=== PATIENT | female | born 1935 | race Caucasian/White ===

== ENCOUNTER 2020-01-03 10:14 | Outpatient (CLI) | payer MEDICARE, BC, SELFPAY ==
[2020-01-03 10:45] LABS: Basophils Percent Auto 0.4 % (0.2-1.2); Eosinophils Absolute Auto 0.3 K/mm3 (0-0.3); Eosinophils Percent Auto 3.9 % (0-4.4); Hematocrit 38.1 % (37.0-47.0); Hemoglobin 12.5 g/dL (12.0-15.0); Immature Granulocyte Absolute 0.02 K/mm3 (0.00-0.031); Immature Granulocyte Percent A 0.3 % (0-0.5); Lymphocytes Absolute Auto 2.23 K/mm3 (0.9-3.2); Lymphocytes Percent Auto 32.5 % (18.3-44.2); Mean Corpuscular HGB Conc 32.8 g/dl (32-36); Mean Corpuscular Hemoglobin 32.4 pg (26-34); Mean Corpuscular Volume 98.7 fl (80-100); Mean Platelet Volume 10.1 fl (7.4-10.4); Monocytes Absolute Auto 0.7 K/mm3 (0.1-0.6); Monocytes Percent Auto 10.3 % (2.6-8.5); Neutrophils Absolute Auto 3.6 K/mm3 (1.3-6.7); Neutrophils Percent Auto 52.6 % (45.5-73.1); Platelet Count Result 203 k/mm3 (150-375); Red Blood Count 3.86 M/mm3 (4.2-5.4); Red Cell Distribution Width 11.4 % (11.5-14.5); White Blood Count 6.9 K/mm3 (4.5-10.0)
[2020-01-03 11:01] LABS: Anion Gap 4 mmol/L (8-16); Blood Urea Nitrogen 14 mg/dL (7-17); Calcium 8.9 mg/dL (8.4-10.2); Carbon Dioxide 29 mmol/L (22-30); Chloride 104 mmol/L (98-107); Cholesterol 125 mg/dL (0-200); Estimated Glomerular Filt Rate > 60; Glucose 91 mg/dL (65-105); HDL Direct 52 mg/dL; Potassium 4.2 mmol/L (3.4-5.0); Sodium 137 mmol/L (137-145); Triglycerides 110 mg/dL (<150)
[2020-01-03 11:12] LABS: LDL Cholesterol Direct 51 mg/dL
[2020-01-03 11:32] LABS: Thyroid Stimulating Hormone 0.032 uIU/mL (0.465-4.680)
[2020-01-03 11:44] LABS: Free T4 Free Thyroxine 1.33 ng/mL (0.78-2.19)
== END 2020-01-03 10:15 | disposition home or self-care (01) ==
PROVIDERS: PCP Internal Medicine; Visit Provider Internal Medicine
DX: E03.9 Hypothyroidism, unspecified (principal); E78.5 Hyperlipidemia, unspecified; I10 Essential (primary) hypertension; Z79.899 Other long term (current) drug therapy
CPT/HCPCS: 36415; 80048; 80061; 84439; 84443; 85025

== ENCOUNTER 2020-05-07 10:33 | Outpatient (CLI) | payer MEDICARE, BC, SELFPAY ==
[2020-05-07 11:14] LABS: Anion Gap 2 mmol/L (8-16); Blood Urea Nitrogen 11 mg/dL (7-17); Calcium 8.9 mg/dL (8.4-10.2); Carbon Dioxide 32 mmol/L (22-30); Chloride 105 mmol/L (98-107); Cholesterol 168 mg/dL (0-200); Estimated Glomerular Filt Rate > 60; Glucose 95 mg/dL (65-105); HDL Direct 45 mg/dL; Potassium 4.1 mmol/L (3.4-5.0); Sodium 139 mmol/L (137-145); Triglycerides 123 mg/dL (<150)
[2020-05-07 11:19] LABS: Hemoglobin A1C 5.6 % (<5.7)
[2020-05-07 11:25] LABS: LDL Cholesterol Direct 94 mg/dL
[2020-05-07 11:53] LABS: Add Urine Microscopic? YES; Appearance Urine Clear (Clear); Bilirubin Urine Negative (Negative); Blood Urine Negative (Negative); Color Urine Yellow (Yellow); Glucose Urine UA Negative (Negative); Ketones Urine Negative (Negative); Leukocyte Esterase Ur Negative LEU/UL (NEGATIVE); Mucus Urine Few /lpf; Nitrate Urine Negative (Negative); Protein Urine Negative (Negative); RBC Urine 0-2 /hpf (0-2); Specific Grav Ur 1.016 (1.001-1.035); Urobilinogen Urine Negative mg/dL (<2.0); WBC Urine 0-3 /hpf (0-3)
== END 2020-05-07 10:34 | disposition home or self-care (01) ==
LOC: ANHLAB 10:36
PROVIDERS: PCP Internal Medicine; Visit Provider Internal Medicine
DX: R79.89 Other specified abnormal findings of blood chemistry (principal); E03.9 Hypothyroidism, unspecified; I10 Essential (primary) hypertension; Z79.899 Other long term (current) drug therapy; E78.2 Mixed hyperlipidemia
CPT/HCPCS: 36415; 80048; 80061; 81001; 83036; 83090; 84439; 84443

== ENCOUNTER 2020-07-16 11:06 | Outpatient (CLI) | payer MEDICARE, BC, SELFPAY ==
[2020-07-16 11:59] LABS: Cholesterol 133 mg/dL (0-200); HDL Direct 70 mg/dL; Triglycerides 81 mg/dL (<150)
[2020-07-16 12:09] LABS: LDL Cholesterol Direct 44 mg/dL
== END 2020-07-16 11:07 | disposition home or self-care (01) ==
PROVIDERS: PCP Internal Medicine; Visit Provider Internal Medicine
DX: E78.2 Mixed hyperlipidemia (principal)
CPT/HCPCS: 36415; 80061

== ENCOUNTER 2020-09-07 12:05 | Outpatient (CLI) | payer MEDICARE, BC, SELFPAY ==
[2020-09-07 12:34] LABS: Anion Gap 2 mmol/L (8-16); Blood Urea Nitrogen 14 mg/dL (7-17); Calcium 9.5 mg/dL (8.4-10.2); Carbon Dioxide 32 mmol/L (22-30); Chloride 104 mmol/L (98-107); Cholesterol 127 mg/dL (0-200); Estimated Glomerular Filt Rate > 60; Glucose 103 mg/dL (65-105); HDL Direct 70 mg/dL; Potassium 4.4 mmol/L (3.4-5.0); Sodium 138 mmol/L (137-145); Triglycerides 107 mg/dL (<150)
[2020-09-07 12:45] LABS: LDL Cholesterol Direct 42 mg/dL
[2020-09-07 13:02] LABS: Thyroid Stimulating Hormone 0.361 uIU/mL (0.465-4.680)
[2020-09-07 13:46] LABS: Folic Acid > 20.0 ng/mL (2.76->20)
[2020-09-07 13:52] LABS: Free T4 Free Thyroxine 1.16 ng/mL (0.78-2.19)
[2020-09-12 07:43] LABS: Vitamin D 1,25 (OH)2 Total 35 pg/mL (18-72); Vitamin D2 1,25 (OH)2 <8 pg/mL; Vitamin D3 1,25 (OH)2 35 pg/mL
== END 2020-09-07 12:06 | disposition home or self-care (01) ==
PROVIDERS: PCP Internal Medicine; Visit Provider Internal Medicine
DX: E78.2 Mixed hyperlipidemia (principal); E03.9 Hypothyroidism, unspecified; I10 Essential (primary) hypertension; R79.89 Other specified abnormal findings of blood chemistry; E55.9 Vitamin D deficiency, unspecified
CPT/HCPCS: 36415; 80048; 80061; 82607; 82652; 82746; 84439; 84443

== ENCOUNTER 2020-09-24 14:38 | Day surgery (SDC) | payer MEDICARE, BC, SELFPAY ==
--- NOTE | ~2020-09-24 | XR_ITS ---
EXAMINATION: XR chest 2V EXAM DATE: 09/24/2020 16:23 INDICATION: Difficulty swallowing. TECHNIQUE: Frontal and lateral projections of the chest obtained and reviewed. Comparison is made to prior examination from 07/03/2018. FINDINGS: The lungs are clear. There are no pleural effusions. The cardiomediastinal silhouette is within normal limits. There is no pneumothorax suspected. Mild upper lumbar levoscoliosis. Old righ t rib fractures. IMPRESSION: No acute cardiopulmonary findings. Reviewed, dictated and finalized at location A.
[2020-09-24 14:43] VITALS: BP 130/53; PULSE 57; RESP 17; TEMP 36.6; O2SAT 99
--- NOTE | 2020-09-24 16:04 | ED.GENADULT ---
HPI - General Adult General Chief complaint: Unspecified Stated complaint: difficulty swallowing Time Seen by Provider: 09/24/20 15:50 Source: patient Mode of arrival: ambulatory Limitations: no limitations History of Present Illness HPI narrative: This is a 84 year old female that presents to the ER for difficulty swallowing. Reports last night she was trying to eat chicken finger and had to vomit a couple of times because they would not go down. Reports she tried to eat breakfast today and once again threw up. She is unable to keep down any liquids or solids. Reports some discomfort in her upper abdomen. Denies chest pain or shortness of breath. Related Data Home Medications Medication Instructions Recorded Confirmed ascorbic acid (vitamin C) 500 mg mg PO 05/23/19 05/15/20 capsule calcium carbonate 600 mg calcium 600 mg PO DAILY 05/23/19 05/15/20 (1,500 mg) tablet cholecalciferol (vitamin D3) 10 400 unit PO DAILY 05/23/19 05/15/20 mcg (400 unit) capsule mecobalamin (vitamin B12) 1,000 1,000 mcg SUBLINGUAL DAILY 05/23/19 05/15/20 mcg disintegrating tablet,sublingual multivitamin 1 tablet PO DAILY 05/23/19 05/15/20 aspirin 81 mg tablet,delayed 81 mg PO DAILY 05/15/20 05/15/20 release Allergies Allergy/AdvReac Type Severity Reaction Status Date / Time No Known Allergies Allergy Verified 09/24/20 15:38 Review of Systems Review of Systems: Narrative: CONSTITUTIONAL: Denies fever CARDIOVASCULAR: Denies chest pain RESPIRATORY: Denies dyspnea. 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 HEAD: Normocephalic, atraumatic. EYES: EOMI. ENT: Mucous membranes moist. Oropharynx without tonsillar hypertrophy exudate or other lesions. NECK: Supple. No adenopathy or masses. CHEST: Clear to auscultation. No respiratory distress. No wheezes rales or rhonchi HEART: Regular rate and rhythm. No murmur heard. Normal peripheral pulses. ABDOMEN: Soft, nontender, nondistended, normal active bowel sounds. EXTREMITIES: Normal range of motion. No edema. SKIN: Warm, dry, no rash. NEURO: No focal deficits. Alert and oriented x3. PSYCH: Normal mood and affect Course Consultations Consultation #1: Spoke with Dr. Ching about patient and workup who will take patient to the GI lab for EGD Date: 09/24/20 Time: 16:27 Vital Signs Vital signs: Vital Signs Temperature 97.8 F 09/24/20 14:43 Pulse Rate 57 L 09/24/20 14:43 Respiratory Rate 17 09/24/20 14:43 Blood Pressure 130/53 L 09/24/20 14:43 Pulse Oximetry 99 09/24/20 14:43 Temperature 97.8 F 09/24/20 17:10 Pulse Rate 63 09/24/20 17:46 Respiratory Rate 22 H 09/24/20 17:46 Blood Pressure 139/52 L 09/24/20 17:46 Pulse Oximetry 100 09/24/20 17:46 Medical Decision Making MDM Narrative Medical decision making narrative: Patient presents to the emergency department for dysphagia. Reports she try to eat some chicken tenders last night and has not been able to keep down any liquids or solid
[2020-09-24 16:35] LABS: Basophils Percent Auto 0.3 % (0.2-1.2); Eosinophils Absolute Auto 0.1 K/mm3 (0-0.3); Hematocrit 39.5 % (37.0-47.0); Immature Granulocyte Absolute 0.03 K/mm3 (0.00-0.031); Immature Granulocyte Percent A 0.3 % (0-0.5); Lymphocytes Absolute Auto 1.68 K/mm3 (0.9-3.2); Mean Corpuscular HGB Conc 32.9 g/dl (32-36); Mean Corpuscular Hemoglobin 32.6 pg (26-34); Mean Platelet Volume 10.1 fl (7.4-10.4); Monocytes Absolute Auto 0.7 K/mm3 (0.1-0.6); Monocytes Percent Auto 8.4 % (2.6-8.5); Neutrophils Absolute Auto 6.3 K/mm3 (1.3-6.7); Platelet Count Result 192 k/mm3 (150-375); Red Blood Count 3.99 M/mm3 (4.2-5.4); Red Cell Distribution Width 11.3 % (11.5-14.5); White Blood Count 8.8 K/mm3 (4.5-10.0)
[2020-09-24 16:42] LABS: Lipase 88 U/L (23-300)
[2020-09-24 16:44] LABS: Partial Thromboplastin Time 26.2 SECONDS (22.3-36.8); Prothrombin Time 13.5 Seconds (11.1-14.7)
[2020-09-24 16:48] LABS: Alanine Aminotransferase 19 U/L (4-35); Albumin Level 4.2 g/dL (3.5-5.1); Alkaline Phosphatase 81 U/L (38-126); Anion Gap 6 mmol/L (8-16); Aspartate Amino Transferase 34 U/L (14-36); Bilirubin,Total 0.6 mg/dL (0.2-1.3); Blood Urea Nitrogen 13 mg/dL (7-17); Calcium 9.5 mg/dL (8.4-10.2); Carbon Dioxide 29 mmol/L (22-30); Chloride 104 mmol/L (98-107); Estimated Glomerular Filt Rate > 60; Glucose 95 mg/dL (65-105); Potassium 3.8 mmol/L (3.4-5.0); Sodium 139 mmol/L (137-145)
--- NOTE | 2020-09-24 16:53 | WPDANESEPPF ---
Anes - Initial Pre Proc Eval Procedure: Operation Date: 09/24/20 16:45 Proposed Procedures p Esophagogastroduodenoscopy - John Ruiz DO Date/Time: 09/24/20 16:53 Surgeon: John Ching MD Pre Op Diagnosis: difficulty swallowing Patient Data Age: 84 Gender: F Height: Weight: 63 kg Last Vital Signs Temp 36.6 C 09/24/20 14:43 Pulse 57 L 09/24/20 14:43 Resp 17 09/24/20 14:43 BP 130/53 L 09/24/20 14:43 Pulse Ox 99 09/24/20 14:43 Allergies Allergy/AdvReac Type Severity Reaction Status Date / Time No Known Allergies Allergy Verified 09/24/20 15:38 Home Medications Medication Instructions Recorded Confirmed Type ascorbic acid (vitamin C) 500 mg mg PO 05/23/19 05/15/20 History capsule calcium carbonate 600 mg calcium 600 mg PO DAILY 05/23/19 05/15/20 History (1,500 mg) tablet cholecalciferol (vitamin D3) 10 400 unit PO DAILY 05/23/19 05/15/20 History mcg (400 unit) capsule mecobalamin (vitamin B12) 1,000 1,000 mcg SUBLINGUAL DAILY 05/23/19 05/15/20 History mcg disintegrating tablet,sublingual multivitamin 1 tablet PO DAILY 05/23/19 05/15/20 History folic acid 1 mg tablet 1 mg PO DAILY #90 tablet 01/02/20 05/15/20 Rx aspirin 81 mg tablet,delayed 81 mg PO DAILY 05/15/20 05/15/20 History release atorvastatin 20 mg tablet 20 mg PO DAILY #90 tablet 05/15/20 05/15/20 Rx candesartan 32 mg tablet 32 mg PO DAILY #90 tablet 05/15/20 05/15/20 Rx famotidine 40 mg tablet 40 mg PO DAILY #90 tablet 05/15/20 05/15/20 Rx levothyroxine 125 mcg capsule 125 mcg PO DAILY #30 cap 05/15/20 05/15/20 Rx metoprolol succinate 25 mg 25 mg PO DAILY #90 tablet 05/15/20 05/15/20 Rx tablet,extended release 24 hr niacin 1,000 mg tablet,extended 1,000 mg PO DAILY #90 tablet 05/15/20 05/15/20 Rx release paroxetine HCl 20 mg tablet 20 mg PO DAILY #90 tablet 05/15/20 05/15/20 Rx Laboratory Tests 09/24/20 09/24/20 09/24/20 16:28 16:28 16:28 WBC 8.8 K/mm3 K/mm3 (4.5-10.0) RBC 3.99 M/mm3 L M/mm3 (4.2-5.4) Hgb 13.0 g/dL g/dL (12.0-15.0) Hct 39.5 % % (37.0-47.0) MCV 99.0 fl fl (80-100) MCH 32.6 pg pg (26-34) MCHC 32.9 g/dl g/dl (32-36) RDW 11.3 % L % (11.5-14.5) Plt Count 192 k/mm3 k/mm3 (150-375) MPV 10.1 fl fl (7.4-10.4) Immature Gran % (Auto) 0.3 % % (0-0.5) Neut % (Auto) 71.0 % % (45.5-73.1) Lymph % (Auto) 19.0 % % (18.3-44.2) [place] % (Auto) 8.4 % % (2.6-8.5) Eos % (Auto) 1.0 % % (0-4.4) Baso % (Auto) 0.3 % % (0.2-1.2) Lymph # (Auto) 1.68 K/mm3 K/mm3 (0.9-3.2) [place] # (Auto) 0.7 K/mm3 H K/mm3 (0.1-0.6) Eos # (Auto) 0.1 K/mm3 K/mm3 (0-0.3) Baso # (Auto) 0.0 K/mm3 K/mm3 (0.0-0.1) Abs Immat Gran (auto) 0.03 K/mm3 K/mm3 (0.00-0.031) Absolute Neuts (auto) 6.3 K/mm3 K/mm3 (1.3-6.7) Absolute Nucleated RBC 0.0 K/mm3 K/mm3 (0.0-0.012) Nucleated RBC % 0.0 % % (0.0-0.2) PT INR APTT Sodium 139 mmol/L mmol/L (137-145) Potassium 3.8 mmol/L mmol/L (3.4-5.0) Chloride 104 mmol/L mmol/L (98-107) Carbon Dioxide 29 mmol/L mmol/L (22-30) Anion Gap 6 mmol/L L mmol/L (8-16) BUN 13 mg/dL mg/dL (7-17) Creatinine 0.70 mg/dL mg/dL (0.7-1.0) Estim Creat Clear Calc Not Reportable Estimated GFR > 60 (59 - ) Glucose 95 mg/dL mg/dL (65-105) Calcium 9.5 mg/dL mg/dL (8.4-10.2) Total Bilirubin 0.6 mg/dL mg/dL (0.2-1.3) AST 34 U/L U/L (14-36) ALT 19 U/L U/L (4-35) Alkaline Phosphatase 81 U/L U/L (38-126) Total Protein 7.0 g/dL g/dL (6.3-8.2) Albumin 4.2 g/dL g/dL (3.5-5.1) Lipase 88 U/L U/L (23
--- NOTE | 2020-09-24 17:04 | PC.NURSE ---
To GI lab per maraí.
[2020-09-24 17:10] VITALS: BP 138/62; PULSE 75; RESP 20; TEMP 36.6; O2SAT 100
[2020-09-24] MEDS: LACTATED RINGERS 1,000 ML 150 ML IV CONT (17:13)
--- NOTE | 2020-09-24 17:25 | WPDGICN ---
Assessment and Plan Assessment and plan (1) Dysphagia: Qualifiers: Dysphagia type: unspecified Qualified Code(s): R13.10 - Dysphagia, unspecified Code(s): R13.10 - Dysphagia, unspecified Status: Acute (2) GERD (gastroesophageal reflux disease): Qualifiers: Esophagitis presence: esophagitis presence not specified Qualified Code(s): K21.9 - Gastro-esophageal reflux disease without esophagitis Code(s): K21.9 - Gastro-esophageal reflux disease without esophagitis Status: Acute Assessment and Plan: Patient with a long history of GE reflux. Known to have esophageal stricturing on this basis. Likely would benefit from PPI therapy long-term rather than H2 blockers. Further recommendations will be given after endoscopy. (3) Food impaction of esophagus: Code(s): T18.128A - Food in esophagus causing other injury, initial encounter Status: Acute Assessment and Plan: Patient presents with food impaction since the last 24 hours. Unable to give a good history. Known to have esophageal stricture ring on the basis of GE reflux disease. Plan is for urgent EGD to disimpact the food bolus. Further recommendations will be given after endoscopy. GI Consult Note Consult date/time: 09/24/20 17:25 HPI: Jonna Velazco is a 84 year old female Seen in evaluation at the request of the emergency room. Patient was eating chicken last evening was abruptly unable to eat or swallow any additional intake. She continues to have difficulty swallowing saliva this morning. For this reason she presented to the emergency room. She denies abdominal pain. She appears to have very poor memory period 2019 EGD was performed esophageal stricture ring was identified dilated period that time placed on Prilosec 20 mg p.o. daily. In the interval. Two years she no longer takes this medication she has however taking famotidine on daily basis. Patient is unable to give a history of heartburn. But denies any weight loss. Family history noncontributory. 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 Family History Family History Father Family history of heart disease in male family member before age 55 Social History Social History Smoking status: Never smoker Alcohol intake: current Gender identity (if verbalized by the patient): Female Meds Home Medications and Allergies Home Medications Medication Instructions Recorded Confirmed Type ascorbic acid (vitamin C) 500 mg mg PO 05/23/19 05/15/20 History capsule calcium carbonate 600 mg calcium 600 mg PO DAILY 05/23/19 05/15/20 History (1,500 mg) tablet cholecalciferol (vitamin D3) 10 400 unit PO DAILY 05/23/19 05/15/20 History mcg (400 unit) capsule mecobalamin (vitamin B12) 1,000 1,000 mcg SUBLINGUAL DAILY 05/23/19 05/15/20 History mcg disintegrating tablet,sublingual multivitamin 1 tablet PO DAILY 05/23/19 05/15/20 History folic acid 1 mg tablet 1 mg PO DAILY #90 tablet 01/02/20 05/15/20 Rx aspirin 81 mg tablet,delayed 81 mg PO DAILY 05/15/20 05/15/20 History release atorvastatin 20 mg tablet 20 mg PO DAILY #90 tablet 05/15/20 05/15/20 Rx candesartan 32 mg tablet 32 mg PO DAILY #90 tablet 05/15/20 05/15/20 Rx famotidine 40 mg tablet 40 mg PO DAILY #90 tablet 05/15/20 05/15/20 Rx levothyro
[2020-09-24 17:26] VITALS: BP 119/47; PULSE 66; RESP 27; O2SAT 100
[2020-09-24 17:36] VITALS: BP 121/45; PULSE 60; RESP 25; O2SAT 100
[2020-09-24 17:46] VITALS: BP 139/52; PULSE 63; RESP 22; O2SAT 100
== END 2020-09-24 17:58 | disposition home or self-care (01) ==
LOC: ANHED 16:04 → ANHENDO 16:43
PROVIDERS: Physician Assistant; Emergency Provider Emergency Medicine; PCP Internal Medicine; Visit Provider Internal Medicine Gastroenterology
PROC: 0DJ08ZZ Inspection of Upper Intestinal Tract, Via Natural or Artificial Opening Endoscopic (ICD-10-PCS; CPT 43235; principal; 2020-09-24 16:45)
DX: T18.128A Food in esophagus causing other injury, initial encounter (principal); K22.2 Esophageal obstruction; K21.00 Gastro-esophageal reflux disease with esophagitis, without bleeding; I10 Essential (primary) hypertension; E78.5 Hyperlipidemia, unspecified; E03.9 Hypothyroidism, unspecified; Z79.899 Other long term (current) drug therapy; R09.89 Other specified symptoms and signs involving the circulatory and respiratory systems; F32.9 Major depressive disorder, single episode, unspecified; Z86.73 Personal history of transient ischemic attack (TIA), and cerebral infarction without residual deficits; Z79.82 Long term (current) use of aspirin
CPT/HCPCS: 43247; 36415; 71046; 80053; 83690; 85025; 85610; 85730; 99285; J2704; J7120

== ENCOUNTER → 2020-10-20 01:05 | Outpatient (CLI) | payer MEDICARE, BC, SELFPAY ==
[2020-10-20 17:56] LABS: SARS-CoV-2 RNA PCR Negative
== END ==
PROVIDERS: PCP Internal Medicine; Visit Provider Internal Medicine Gastroenterology
DX: Z01.812 Encounter for preprocedural laboratory examination (principal); Z20.822 Contact with and (suspected) exposure to COVID-19
CPT/HCPCS: C9803; U0003; U0005

== ENCOUNTER 2020-10-23 01:56 | Day surgery (SDC) | payer MEDICARE, BC, SELFPAY ==
[2020-10-11 14:10] VITALS: BMI 31.5
[2020-10-23 06:32] VITALS: BP 150/64; PULSE 54; RESP 18; TEMP 36.6; O2SAT 99; BMI 31.0
[2020-10-23] MEDS: LACTATED RINGERS 1,000 ML 150 ML IV CONT (06:41)
--- NOTE | 2020-10-23 07:03 | WPDANESEPPF ---
Anes - Initial Pre Proc Eval Procedure: Operation Date: 10/23/20 07:30 Proposed Procedures p Esophagogastroduodenoscopy - John Ching MD Date/Time: 10/23/20 07:03 Surgeon: John Ching MD Pre Op Diagnosis: esophageal stricture Patient Data Age: 84 Gender: F Height: 1.57 m Weight: 77 kg Last Vital Signs Temp 36.6 C 10/23/20 06:32 Pulse 54 L 10/23/20 06:32 Resp 18 10/23/20 06:32 BP 150/64 H 10/23/20 06:32 Pulse Ox 99 10/23/20 06:32 Allergies Allergy/AdvReac Type Severity Reaction Status Date / Time No Known Allergies Allergy Verified 10/23/20 06:31 Home Medications Medication Instructions Recorded Confirmed Type ascorbic acid (vitamin C) 500 mg 500 mg PO DAILY 05/23/19 10/23/20 History capsule calcium carbonate 600 mg calcium 600 mg PO DAILY 05/23/19 10/23/20 History (1,500 mg) tablet cholecalciferol (vitamin D3) 10 400 unit PO DAILY 05/23/19 10/23/20 History mcg (400 unit) capsule mecobalamin (vitamin B12) 1,000 1,000 mcg SUBLINGUAL DAILY 05/23/19 10/23/20 History mcg disintegrating tablet,sublingual multivitamin 1 tablet PO DAILY 05/23/19 10/23/20 History folic acid 1 mg tablet 1 mg PO DAILY #90 tablet 01/02/20 10/23/20 Rx aspirin 81 mg tablet,delayed 81 mg PO DAILY 05/15/20 10/23/20 History release atorvastatin 20 mg tablet 20 mg PO DAILY #90 tablet 05/15/20 10/23/20 Rx candesartan 32 mg tablet 32 mg PO DAILY #90 tablet 05/15/20 10/23/20 Rx famotidine 40 mg tablet 40 mg PO DAILY #90 tablet 05/15/20 10/23/20 Rx metoprolol succinate 25 mg 25 mg PO DAILY #90 tablet 05/15/20 10/23/20 Rx tablet,extended release 24 hr niacin 1,000 mg tablet,extended 1,000 mg PO DAILY #90 tablet 05/15/20 10/23/20 Rx release paroxetine HCl 20 mg tablet 20 mg PO DAILY #90 tablet 05/15/20 10/23/20 Rx levothyroxine 137 mcg PO DAILY 10/11/20 10/23/20 History omeprazole [Prilosec] 20 mg PO DAILY 10/11/20 10/23/20 History Patient hx anesthesia problems: none Family hx anesthesia problems: none [facility] Past Medical History Medical History Benign essential hypertension BMI 34.0-34.9,adult BMI 35.0-35.9,adult Carotid bruit Depression Elevated homocysteine Encounter for routine adult health examination without abnormal findings GERD (gastroesophageal reflux disease) History of 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 accident) Hyperlipidemia Hypothyroidism (acquired) On custodial drug therapy Family History Family History Father Family history of heart disease in male family member before age 55 Social History Social History Smoking status: Never smoker Alcohol intake: current Drinks per week: 1 Substance use: never Substance use type: does not use Living arrangements: with family Gender identity (if verbalized by the patient): Female Spiritual care concerns: No Anes - Eval Final PreProcedure Day of Procedure 10/23/20 07:03 Patient weight: obese Heart: regular rate and rhythm Lungs: clear to auscultation and normal air movement Airway: Mallampati scale class II Neurological: alert and oriented Last oral intake: >/= 8 hours ASA classification: III Emergent: no Anesthetic plan: proceed Anesthesia type and monitoring: general GIVS Informed Consent: The patient's anesthetic plan and its attendant risks and benefits were discussed with the patient/family/POA. Questions were solicited and answers provided to the satisfaction of the patient/family/POA.
--- NOTE | 2020-10-23 07:43 | WPDGICN ---
Assessment and Plan Assessment and plan (1) History of esophageal stricture: Code(s): Z87.19 - Personal history of other diseases of the digestive system Status: Acute (2) Dysphagia: Qualifiers: Dysphagia type: unspecified Qualified Code(s): R13.10 - Dysphagia, unspecified Code(s): R13.10 - Dysphagia, unspecified Status: Acute Assessment and Plan: Patient with ongoing difficulty swallowing. Known to have acid reflux and esophageal stricture. Plan is for EGD today. Long-term use of proton pump inhibitor therapy advised. Anti-reflux measures and soft diet encouraged discussed with patient's daughter who accompanies her today. (3) GERD (gastroesophageal reflux disease): Qualifiers: Esophagitis presence: esophagitis presence not specified Qualified Code(s): K21.9 - Gastro-esophageal reflux disease without esophagitis Code(s): K21.9 - Gastro-esophageal reflux disease without esophagitis Status: Acute GI Consult Note Consult date/time: 10/23/20 07:43 HPI: Jonna Velazco is a 84 year old female Presents for EGD. Patient has a history of GE reflux. Known to have esophageal stricture in the past. She recently had a food impaction required disimpaction. Because food been present for some time significant erosion present dilatation was not able to be accomplished at that time. Patient had only been taking H2 blockers. She was subsequently changed to PPI therapy. Patient has poor memory is unable to add any additional history at this time. Review of Systems Review of Systems: ROS unobtainable: Yes unobtainable due to mental status PMF[facility] Past Medical History Medical History Benign essential hypertension BMI 34.0-34.9,adult BMI 35.0-35.9,adult Carotid bruit Depression Elevated homocysteine Encounter for routine adult health examination without abnormal findings GERD (gastroesophageal reflux disease) History of 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 accident) Hyperlipidemia Hypothyroidism (acquired) On halfway drug therapy Family History Family History Father Family history of heart disease in male family member before age 55 Social History Social History Smoking status: Never smoker Alcohol intake: current Drinks per week: 1 Substance use: never Substance use type: does not use Living arrangements: with family Gender identity (if verbalized by the patient): Female Spiritual care concerns: No Meds Home Medications and Allergies Home Medications Medication Instructions Recorded Confirmed Type ascorbic acid (vitamin C) 500 mg 500 mg PO DAILY 05/23/19 10/23/20 History capsule calcium carbonate 600 mg calcium 600 mg PO DAILY 05/23/19 10/23/20 History (1,500 mg) tablet cholecalciferol (vitamin D3) 10 400 unit PO DAILY 05/23/19 10/23/20 History mcg (400 unit) capsule mecobalamin (vitamin B12) 1,000 1,000 mcg SUBLINGUAL DAILY 05/23/19 10/23/20 History mcg disintegrating tablet,sublingual multivitamin 1 tablet PO DAILY 05/23/19 10/23/20 History folic acid 1 mg tablet 1 mg PO DAILY #90 tablet 01/02/20 10/23/20 Rx aspirin 81 mg tablet,delayed 81 mg PO DAILY 05/15/20 10/23/20 History release atorvastatin 20 mg tablet 20 mg PO DAILY #90 tablet 05/15/20 10/23/20 Rx candesartan 32 mg tablet 32 mg PO DAILY #90 tablet 05/15/20 10/23/20 Rx famotidine 40 mg tablet 40 mg PO DAILY #90 tablet 05/15/20 10/23/20 Rx metoprolol succinate 25 mg 25 mg PO DAILY #90 tablet 05/15/20 10/23/20 Rx tablet,extended release 24 hr niacin 1,000 mg tablet,extended 1,000 mg PO DAILY #90 tablet 05/15/20 10/23/20 Rx release paroxetine HCl 20 mg tablet 20 mg PO DAILY #90 tablet 05/15/20 10/23/20 Rx levothyroxine 137 mcg PO DAILY 10/11/20 10/23/20 History omeprazole [Prilosec] 20
[2020-10-23 07:45] VITALS: BP 151/67; PULSE 61; RESP 20; O2SAT 99
[2020-10-23 07:55] VITALS: BP 146/70; PULSE 62; RESP 22; O2SAT 98
[2020-10-23 08:05] VITALS: BP 158/66; PULSE 64; RESP 20; O2SAT 99
== END 2020-10-23 08:28 | disposition home or self-care (01) ==
PROVIDERS: PCP Internal Medicine; Visit Provider Internal Medicine Gastroenterology
PROC: 0DJ08ZZ Inspection of Upper Intestinal Tract, Via Natural or Artificial Opening Endoscopic (ICD-10-PCS; CPT 43235; principal; 2020-10-23 07:30)
DX: Q39.4 Esophageal web (principal); K21.9 Gastro-esophageal reflux disease without esophagitis; I10 Essential (primary) hypertension; E78.5 Hyperlipidemia, unspecified; E03.9 Hypothyroidism, unspecified; F32.9 Major depressive disorder, single episode, unspecified; Z79.82 Long term (current) use of aspirin; E66.9 Obesity, unspecified; Z68.31 Body mass index [BMI] 31.0-31.9, adult
CPT/HCPCS: 43450; 43235; J2001; J2704; J7120

== ENCOUNTER 2021-02-25 11:39 | Outpatient (CLI) | payer MEDICARE, BC, SELFPAY ==
[2021-02-25 12:09] LABS: Basophils Absolute Auto 0.1 K/mm3 (0.0-0.1); Basophils Percent Auto 0.9 % (0.2-1.2); Eosinophils Absolute Auto 0.3 K/mm3 (0-0.3); Eosinophils Percent Auto 3.9 % (0-4.4); Hematocrit 36.9 % (37.0-47.0); Hemoglobin 12.1 g/dL (12.0-15.0); Immature Granulocyte Absolute 0.02 K/mm3 (0.00-0.031); Immature Granulocyte Percent A 0.3 % (0-0.5); Lymphocytes Absolute Auto 1.76 K/mm3 (0.9-3.2); Lymphocytes Percent Auto 26.7 % (18.3-44.2); Mean Corpuscular HGB Conc 32.8 g/dl (32-36); Mean Corpuscular Hemoglobin 32.8 pg (26-34); Mean Platelet Volume 9.9 fl (7.4-10.4); Monocytes Absolute Auto 0.6 K/mm3 (0.1-0.6); Monocytes Percent Auto 9.7 % (2.6-8.5); Neutrophils Absolute Auto 3.9 K/mm3 (1.3-6.7); Neutrophils Percent Auto 58.5 % (45.5-73.1); Platelet Count Result 214 k/mm3 (150-375); Red Blood Count 3.69 M/mm3 (4.2-5.4); Red Cell Distribution Width 11.4 % (11.5-14.5); White Blood Count 6.6 K/mm3 (4.5-10.0)
[2021-02-25 12:23] LABS: Hemoglobin A1C 5.5 % (<5.7)
[2021-02-25 12:25] LABS: Alanine Aminotransferase 18 U/L (4-35); Albumin Level 4.4 g/dL (3.5-5.1); Alkaline Phosphatase 83 U/L (38-126); Anion Gap 5 mmol/L (8-16); Aspartate Amino Transferase 31 U/L (14-36); Bilirubin,Total 0.5 mg/dL (0.2-1.3); Blood Urea Nitrogen 17 mg/dL (7-17); Calcium 9.4 mg/dL (8.4-10.2); Carbon Dioxide 30 mmol/L (22-30); Chloride 103 mmol/L (98-107); Cholesterol 137 mg/dL (0-200); Estimated Glomerular Filt Rate > 60; Glucose 108 mg/dL (65-110); HDL Direct 69 mg/dL; Potassium 4.4 mmol/L (3.4-5.0); Sodium 138 mmol/L (137-145); Triglycerides 119 mg/dL (<150)
[2021-02-25 12:37] LABS: LDL Cholesterol Direct 51 mg/dL
[2021-02-25 12:53] LABS: Free T4 Free Thyroxine 1.16 ng/mL (0.78-2.19)
== END 2021-02-25 11:40 | disposition home or self-care (01) ==
LOC: ANHLAB 11:42
PROVIDERS: PCP Internal Medicine; Visit Provider Internal Medicine
DX: E78.2 Mixed hyperlipidemia (principal); I10 Essential (primary) hypertension; E03.9 Hypothyroidism, unspecified; Z79.899 Other long term (current) drug therapy
CPT/HCPCS: 36415; 80053; 80061; 83036; 84439; 84443; 85025

== ENCOUNTER 2021-06-23 17:14 | Emergency (ER) | payer MEDICARE, BC, SELFPAY ==
--- NOTE | ~2021-06-23 | CT_ITS ---
EXAMINATION: CT cervical spine wo con DATE: 06/23/2021 17:57 INDICATION: Head injury TECHNIQUE: Computed tomography (CT) of the cervical spine was performed without intravenous contrast. The dose-length product (DLP) was 348.01 mGy-cm. Automated exposure control and iterative reconstruc tion technique were employed. COMPARISON: 06/11/2017 FINDINGS: There is no fracture. There are 2 mm of anterolisthesis of C2 on C3 and 2 mm of retrolisthe sis of C4 on C5. The vertebral body heights are maintained. The odontoid is intact. There is moderate to severe loss of intervertebral disc space height throughout the cervical spine. The prevertebral s oft tissues are normal. There is moderate multilevel facet and uncovertebral joint osteoarthritis. IMPRESSION: 1. Moderate cervical spondylosis without acute findings or significant interval change. Reviewed, dictated and finalized at location F. ER 2ND SHIFT
--- NOTE | ~2021-06-23 | CT_ITS ---
EXAMINATION: CT brain wo con INDICATION: Head injury COMPARISON: 10/20/2018 TECHNIQUE: Standard unenhanced head CT. The dose-length product (DLP) was 605.33 mGy-cm. The mA was a djusted according to patient size. Iterative reconstruction technique was employed. FINDINGS: There is a left parietal scalp soft tissue hematoma. There is no acute intraparenchymal hem orrhage. No evidence of mass lesion. No evidence of acute infarction. There is an old infarct of the right thalamus. There is mild periventricular and subcortical hypodensity probably related to small v essel ischemic disease. There is mild prominence of the sulci and ventricles related to cerebral atro phy. Intracranial calcified cerebral atherosclerosis is noted. There are no extra-axial collections. There is no mass effect or midline shift. The orbits are unremarkable. The visualized sinuses and mas toid air cells are well aerated. IMPRESSION: 1. Left parietal scalp hematoma without acute intracranial abnormality. 2. Age related findings. Reviewed, dictated and finalized at location F. NT RELATIONS COORDINATOR
[2021-06-23 17:18] VITALS: BP 177/68; PULSE 72; RESP 16; TEMP 36; O2SAT 100
--- NOTE | 2021-06-23 17:40 | ED.HEATRA ---
HPI - Head Injury General Chief complaint: Fall Stated complaint: fall/hi Time Seen by Provider: 06/23/21 17:30 Source: patient Mode of arrival: ambulatory Limitations: no limitations History of Present Illness HPI Narrative: Patient is an 85-year-old female complaining of head injury after she missed a step and fell backwards hitting the back of her head on the ground. Patient complaining of mild head pain. Patient denies any loss of consciousness. Patient denies any symptoms prior to the fall. Patient states that she was able to stand up and ambulate after the fall. Patient denies any neck, chest, abdomen, back, pelvis, hip or any extremity pain/injury. Related Data Home Medications Medication Instructions Recorded Confirmed ascorbic acid (vitamin C) 500 mg 500 mg PO DAILY 05/23/19 03/15/21 capsule calcium carbonate 600 mg calcium 600 mg PO DAILY 05/23/19 03/15/21 (1,500 mg) tablet cholecalciferol (vitamin D3) 10 400 unit PO DAILY 05/23/19 03/15/21 mcg (400 unit) capsule mecobalamin (vitamin B12) 1,000 1,000 mcg SUBLINGUAL DAILY 05/23/19 03/15/21 mcg disintegrating tablet,sublingual multivitamin 1 tablet PO DAILY 05/23/19 03/15/21 aspirin 81 mg tablet,delayed 81 mg PO DAILY 05/15/20 03/15/21 release Allergies Allergy/AdvReac Type Severity Reaction Status Date / Time No Known Allergies Allergy Verified 03/13/21 11:03 Review of Systems Review of Systems: All systems reviewed & are unremarkable except as noted in HPI and below Constitutional: Constitutional: Denies body ache(s), Denies chills, Denies excessive sweating, Denies fatigue, Denies fever(s), Denies headache(s), Denies lethargy, Denies malaise, Denies weakness and Denies weight loss Eyes: Eyes: Denies blurry vision, Denies change in vision and Denies loss of vision ENT: Denies dizziness, Denies ear discharge, Denies headache(s), Denies lip swelling, Denies epistaxis, Denies nasal congestion, Denies neck pain, Denies throat swelling and Denies tongue swelling Cardiovascular: Cardiovascular: Denies chest pain, Denies chest pain at rest, Denies chest pain with activity, Denies diaphoresis, Denies rapid heart rate, Denies edema, Denies irregular heart rhythm, Denies lightheadedness, Denies palpitations, Denies dyspnea and Denies dyspnea on exertion Respiratory: Respiratory: Denies chest congestion, Denies cough, Denies hemoptysis, Denies dyspnea and Denies dyspnea on exertion Gastrointestinal: Gastrointestinal: Denies abdominal pain, Denies melena, Denies hematochezia, Denies diarrhea, Denies nausea, Denies vomiting and Denies hematemesis Musculoskeletal: Musculoskeletal: Denies abnormal gait, Denies deformity, Denies joint swelling, Denies limited range of motion, Denies neck pain and Denies numbness Neurologic: Denies Abnormal speech present, Denies abnormal gait, Denies confusion, Denies dizziness, Denies headache(s), Denies focal weakness, Denies loss of vision, Denies numbness, Denies Other visual disturbances, Denies Sensory deficit (Neuro) and Denies weakness Psychiatric: Psychiatric: Denies confusion, Denies depression, Denies auditory hallucinations, Denies homicidal ideation and Denies suicidal ideation Endocrine: Endocrine: Denies cold intolerance, Denies excessive sweating, Denies fatigue, Denies heat intolerance and Denies palpitations Hematologic/Lymphatic: Hematologic/Lymphatic: Denies easy bleeding and Denies easy bruising Allergic/Immunologic: Allergic/Immunologic: Denies lip swelling, Denies throat swelling and Denies tongue swelling PMFSH Past Medical History Medical History Benign essential hypertension BMI 31.0-31.9,adult BMI 32.0-32.9,adult BMI 34.0-34.9,adult BMI 35.0-35.9,adult Breast cancer screening Carotid bruit Depression Elevated homocysteine Encounter for routine adult health examination without abnormal findings Gastric erosions GERD (gastroesophageal refl
[2021-06-23] MEDS: TETANUS,DIPHTHERIA,AC PERTUSSIS ADULT (0.5 ML) BOOSTRIX IM (18:17)
[2021-06-23 18:52] VITALS: PULSE 91; RESP 18; O2SAT 97
[2021-06-23 19:00] VITALS: BP 144/65
== END 2021-06-23 19:00 | disposition home or self-care (01) ==
PROVIDERS: Emergency Provider Emergency Medicine; PCP Internal Medicine
DX: S09.90XA Unspecified injury of head, initial encounter (principal); Z23 Encounter for immunization; I10 Essential (primary) hypertension; E78.5 Hyperlipidemia, unspecified; E03.9 Hypothyroidism, unspecified; K21.9 Gastro-esophageal reflux disease without esophagitis; F32.A Depression, unspecified; Z86.73 Personal history of transient ischemic attack (TIA), and cerebral infarction without residual deficits; W10.9XXA Fall (on) (from) unspecified stairs and steps, initial encounter; Z79.82 Long term (current) use of aspirin
CPT/HCPCS: 70450; 72125; 90471; 90715; 99284

== ENCOUNTER 2021-07-09 12:17 | Outpatient (CLI) | payer MEDICARE, BC, SELFPAY ==
[2021-07-09 12:41] LABS: Basophils Percent Auto 0.6 % (0.2-1.2); Eosinophils Absolute Auto 0.2 K/mm3 (0-0.3); Hematocrit 38.7 % (37.0-47.0); Hemoglobin 12.8 g/dL (12.0-15.0); Immature Granulocyte Absolute 0.02 K/mm3 (0.00-0.031); Immature Granulocyte Percent A 0.3 % (0-0.5); Lymphocytes Absolute Auto 1.66 K/mm3 (0.9-3.2); Lymphocytes Percent Auto 26.3 % (18.3-44.2); Mean Corpuscular HGB Conc 33.1 g/dl (32-36); Mean Corpuscular Hemoglobin 32.4 pg (26-34); Mean Platelet Volume 9.6 fl (7.4-10.4); Monocytes Absolute Auto 0.8 K/mm3 (0.1-0.6); Neutrophils Absolute Auto 3.7 K/mm3 (1.3-6.7); Neutrophils Percent Auto 57.8 % (45.5-73.1); Platelet Count Result 227 k/mm3 (150-375); Red Blood Count 3.95 M/mm3 (4.2-5.4); Red Cell Distribution Width 11.2 % (11.5-14.5); White Blood Count 6.3 K/mm3 (4.5-10.0)
[2021-07-09 12:49] LABS: Hemoglobin A1C 5.5 % (<5.7)
[2021-07-09 12:51] LABS: Anion Gap 3 mmol/L (8-16); Blood Urea Nitrogen 21 mg/dL (7-17); Calcium 9.6 mg/dL (8.4-10.2); Carbon Dioxide 29 mmol/L (22-30); Chloride 104 mmol/L (98-107); Cholesterol 131 mg/dL (0-200); Estimated Glomerular Filt Rate > 60; Glucose 87 mg/dL (65-110); HDL Direct 63 mg/dL; Potassium 4.5 mmol/L (3.4-5.0); Sodium 136 mmol/L (137-145); Triglycerides 109 mg/dL (<150)
[2021-07-09 13:02] LABS: LDL Cholesterol Direct 42 mg/dL
[2021-07-09 13:44] LABS: Free T4 Free Thyroxine 1.62 ng/mL (0.78-2.19)
== END 2021-07-09 12:18 | disposition home or self-care (01) ==
PROVIDERS: PCP Internal Medicine; Visit Provider Internal Medicine
DX: Z79.899 Other long term (current) drug therapy (principal); I10 Essential (primary) hypertension; E78.2 Mixed hyperlipidemia; E03.9 Hypothyroidism, unspecified
CPT/HCPCS: 36415; 80048; 80061; 83036; 84439; 84443; 85025

== ENCOUNTER 2022-05-16 16:07 | Outpatient (CLI) | payer MEDICARE, BC, SELFPAY ==
--- NOTE | ~2022-05-16 | XR_ITS ---
XR chest 2V 05/16/2022 16:37 Indication: Increasing dyspnea Procedure: PA and lateral views of the chest Comparison: 09/24/2020 Findings: Heart size normal. There is left basilar atelectasis/scarring. No focal pneumonia, edema, p leural effusion or pneumothorax. There are multiple healed bilateral rib fractures. Impression: 1: Left basilar atelectasis/scarring. Reviewed, dictated and finalized at location A. STER HELPER Impression: 1: Left basilar atelectasis/scarring.
[2022-05-16 16:31] LABS: Hemoglobin 13.2 g/dL (12.0-15.0); Mean Corpuscular Volume 96.9 fl (80-100); Mean Platelet Volume 9.4 fl (7.4-10.4); Platelet Count Result 295 k/mm3 (150-375); Red Blood Count 4.13 M/mm3 (4.2-5.4); Red Cell Distribution Width 12.1 % (11.5-14.5); White Blood Count 10.6 K/mm3 (4.5-10.0)
[2022-05-16 16:47] LABS: Alanine Aminotransferase 24 U/L (6-35); Albumin Level 4.2 g/dL (3.5-5.1); Alkaline Phosphatase 89 U/L (38-126); Anion Gap 7 mmol/L (8-16); Aspartate Amino Transferase 34 U/L (14-36); Bilirubin,Total 0.5 mg/dL (0.2-1.3); Blood Urea Nitrogen 12 mg/dL (7-17); Calcium 9.1 mg/dL (8.4-10.2); Carbon Dioxide 30 mmol/L (22-30); Chloride 101 mmol/L (98-107); Estimated Glomerular Filt Rate > 60; Glucose 95 mg/dL (65-110); Potassium 3.9 mmol/L (3.4-5.0); Sodium 138 mmol/L (137-145)
[2022-05-16 17:44] LABS: Vitamin D 25 Hydroxy 41.5 ng/mL
== END 2022-05-16 16:08 | disposition home or self-care (01) ==
PROVIDERS: PCP Internal Medicine; Visit Provider Internal Medicine Geriatric Medicine
DX: R06.09 Other forms of dyspnea (principal); E55.9 Vitamin D deficiency, unspecified
CPT/HCPCS: 36415; 71046; 80053; 82306; 84443; 85027

== ENCOUNTER 2022-07-08 11:05 | Outpatient (CLI) | payer MEDICARE, BC, SELFPAY ==
[2022-07-08 12:35] LABS: Free T4 Free Thyroxine 1.43 ng/mL (0.78-2.19)
== END 2022-07-08 11:06 | disposition home or self-care (01) ==
PROVIDERS: PCP Internal Medicine; Visit Provider Internal Medicine
DX: E03.9 Hypothyroidism, unspecified (principal); Z79.899 Other long term (current) drug therapy
CPT/HCPCS: 36415; 84439

== ENCOUNTER 2022-07-21 10:55 | Outpatient (CLI) | payer MEDICARE, BC, SELFPAY ==
[2022-07-21 11:35] LABS: Basophils Percent Auto 0.7 % (0.2-1.2); Eosinophils Absolute Auto 0.2 K/mm3 (0-0.3); Eosinophils Percent Auto 2.9 % (0-4.4); Hematocrit 38.8 % (37.0-47.0); Hemoglobin 12.6 g/dL (12.0-15.0); Immature Granulocyte Absolute 0.02 K/mm3 (0.00-0.031); Immature Granulocyte Percent A 0.4 % (0-0.5); Lymphocytes Absolute Auto 1.26 K/mm3 (0.9-3.2); Mean Corpuscular HGB Conc 32.5 g/dl (32-36); Mean Corpuscular Volume 98.5 fl (80-100); Mean Platelet Volume 10.1 fl (7.4-10.4); Monocytes Absolute Auto 0.5 K/mm3 (0.1-0.6); Monocytes Percent Auto 8.2 % (2.6-8.5); Neutrophils Absolute Auto 3.6 K/mm3 (1.3-6.7); Neutrophils Percent Auto 64.8 % (45.5-73.1); Platelet Count Result 239 k/mm3 (150-375); Red Blood Count 3.94 M/mm3 (4.2-5.4); Red Cell Distribution Width 11.6 % (11.5-14.5); White Blood Count 5.5 K/mm3 (4.5-10.0)
[2022-07-21 11:45] LABS: Hemoglobin A1C 5.4 % (<5.7)
[2022-07-21 11:46] LABS: Anion Gap 5 mmol/L (8-16); Blood Urea Nitrogen 21 mg/dL (7-17); Carbon Dioxide 29 mmol/L (22-30); Chloride 105 mmol/L (98-107); Cholesterol 175 mg/dL (0-200); Estimated Glomerular Filt Rate > 60; Glucose 111 mg/dL (65-110); HDL Direct 46 mg/dL; Potassium 3.9 mmol/L (3.4-5.0); Sodium 139 mmol/L (137-145); Triglycerides 168 mg/dL (<150)
[2022-07-21 11:57] LABS: LDL Cholesterol Direct 87 mg/dL
[2022-07-21 12:17] LABS: Thyroid Stimulating Hormone < 0.015 uIU/mL (0.465-4.680)
== END 2022-07-21 10:56 | disposition home or self-care (01) ==
PROVIDERS: PCP Internal Medicine; Visit Provider Internal Medicine
DX: E03.9 Hypothyroidism, unspecified (principal); E78.2 Mixed hyperlipidemia; I10 Essential (primary) hypertension; Z79.899 Other long term (current) drug therapy
CPT/HCPCS: 36415; 80048; 80061; 83036; 84443; 85025

== ENCOUNTER 2022-07-23 11:51 | Outpatient (CLI) | payer MEDICARE, BC, SELFPAY ==
[2022-07-23 13:01] LABS: Free T4 Free Thyroxine 2.49 ng/mL (0.78-2.19)
== END 2022-07-23 11:52 | disposition home or self-care (01) ==
LOC: ANHLAB 11:53
PROVIDERS: PCP Internal Medicine; Visit Provider Internal Medicine
DX: E03.9 Hypothyroidism, unspecified (principal); Z79.899 Other long term (current) drug therapy
CPT/HCPCS: 36415; 84439

== ENCOUNTER 2022-07-30 11:01 | Outpatient (CLI) | payer MEDICARE, BC, SELFPAY ==
--- NOTE | ~2022-07-30 | US_ITS ---
EXAMINATION: US carotid duplex BI DATE: 07/30/2022 11:44 INDICATION: Carotid atherosclerosis and stenosis TECHNIQUE: Grayscale, color Doppler, and pulsed Doppler images of the cervical carotid arteries were obtained. The degree of vessel stenosis is placed in one of the following categories: normal, <50%, 5 0-69%, >=70% but less than near-occlusion, near-occlusion, or total occlusion. Note that percent sten osis relative to normal distal artery lumen diameter is indirectly measured from velocity measurement s as described by Tae, et al. Radiology 2003; [id number]:[id number]. COMPARISON: 05/26/2019 FINDINGS: RIGHT: The right common carotid artery (CCA) peak systolic velocity (PSV) is 89 cm/s. The right internal car otid artery (ICA) PSV is 122 cm/s. The right ICA end-diastolic velocity (EDV) is 4 cm/s. The right IC A/CCA PSV ratio is 1.4. Grayscale and color Doppler images yield an estimate of <50% diameter reducti on from plaque in the ICA. The external carotid artery (ECA) PSV is 98 cm/s. There is antegrade flow in the right vertebral artery. LEFT: The left CCA PSV is 137 cm/s. The left ICA PSV is 106 cm/s. The left ICA EDV is 18 cm/s. The left ICA /CCA PSV ratio is 0.8. Grayscale and color Doppler images yield an estimate of <50% diameter reductio n from plaque in the ICA. The ECA PSV is 39 cm/s. There is antegrade flow in the left vertebral arter y. IMPRESSION: 1. <50% stenosis in the right internal carotid artery. 2. <50% stenosis in the left internal carotid artery. Reviewed, dictated and finalized at location A.
== END 2022-07-30 11:02 | disposition home or self-care (01) ==
PROVIDERS: PCP Internal Medicine; Visit Provider Internal Medicine
DX: R09.89 Other specified symptoms and signs involving the circulatory and respiratory systems (principal); I65.23 Occlusion and stenosis of bilateral carotid arteries
CPT/HCPCS: 93880

== ENCOUNTER 2022-08-06 11:28 | Outpatient (CLI) | payer MEDICARE, BC, SELFPAY ==
--- NOTE | ~2022-08-06 | XR_ITS ---
Lumbosacral Spine: AP and lateral views Clinical History: Pain Findings: There is 21 degrees levoscoliosis of the lumbar spine. There is advanced degenerative disc narrowing at all lumbar levels. There is facet arthropathy throughout the lumbar spine, worst at the lower lumbar spine. No acute fracture or subluxation seen. The sacroiliac joints are normally outlin ed. Impression: Advanced degenerative spondylosis throughout the lumbar spine, as detailed above. Levoscoliosis, as above. Reviewed, dictated and finalized at location M. Impression: Advanced degenerative spondylosis throughout the lumbar spine, as detailed garry miner. Levoscoliosis, as above.
--- NOTE | ~2022-08-06 | XR_ITS ---
AP view of the pelvis and AP and lateral views of the bilateral hips Clinical history: Pain Findings: No acute fracture or dislocation is seen. Old, healed fracture deformities are noted the bi lateral mid femoral shafts. Right femoral intramedullary lex is partially imaged. Left femoral intram edullary lex with interlocking femoral neck screw present. Focal heterotopic ossification versus electrical power engineer bud fracture fragment noted at the tip of the left greater trochanter. Bilateral hip and SI joint spa dinorah are preserved. Degenerative disc change noted at the lower lumbar spine. Soft tissues are unremar kable. Impression: No acute abnormality seen. Old, healed fracture deformities of the bilateral mid femoral shafts with bilateral femoral orthopedi c hardware in place. Probable heterotopic ossification versus chronic fracture fragment at the tip of the left greater tro chanter. Reviewed, dictated and finalized at [facility]. Impression: No acute abnormality seen. Old, healed fracture deformities of the bilateral mid femoral shafts with bilat eral femoral orthopedic hardware in place. Probable heterotopic ossification versus chronic fracture fragment at the tip o f the left greater trochanter.
== END 2022-08-06 11:29 | disposition home or self-care (01) ==
PROVIDERS: PCP Internal Medicine; Visit Provider Internal Medicine Geriatric Medicine
DX: M25.551 Pain in right hip (principal); M25.552 Pain in left hip; M47.896 Other spondylosis, lumbar region
CPT/HCPCS: 72100; 73521

== ENCOUNTER 2022-09-03 11:49 | Outpatient (CLI) | payer MEDICARE, BC, SELFPAY ==
[2022-09-04 07:59] LABS: Appearance Urine Turbid (Clear); Bilirubin Urine Negative (Negative); Blood Urine 3+ (Negative); Color Urine Dark Yellow (Yellow); Glucose Urine UA Negative (Negative); Ketones Urine Trace mg/dL (Negative); Leukocyte Esterase Ur 3+ LEU/UL (NEGATIVE); Nitrate Urine Negative (Negative); Protein Urine 1+ mg/dL (Negative); Specific Grav Ur 1.021 (1.001-1.035); pH Urine 6.5 (5.0-9.0)
[2022-09-04 08:20] LABS: RBC Urine 0-2 /hpf (0-2); Squamous Epithelial Cell Urine None seen /hpf (Few); WBC Urine 51-75 /hpf (0-3)
[2022-09-04 08:21] LABS: Bacteria Urine Trace /hpf; Calcium Oxalate Crystals Urine Present /hpf
[2022-09-04 08:36] LABS: Add Urine Microscopic? YES
== END 2022-09-03 11:50 | disposition home or self-care (01) ==
PROVIDERS: PCP Internal Medicine; Visit Provider Internal Medicine Geriatric Medicine
DX: R30.0 Dysuria (principal)
CPT/HCPCS: 81001; 87077; 87086; 87186

== ENCOUNTER 2022-09-23 10:56 | Outpatient (CLI) | payer MEDICARE, BC, SELFPAY ==
--- NOTE | ~2022-09-23 | XR_ITS ---
Lumbosacral Spine: AP, oblique, and lateral views Clinical History: Pain COMPARISON: 08/06/2022 Findings: Stable scoliosis of the lumbar spine. Moderate compression fracture of T12 is present, with mild progressive loss of height since prior exam. There is diffuse advanced degenerative disc narrow ing throughout the lumbar spine. There is diffuse facet arthropathy throughout the lumbar spine. The sacroiliac joints are normally outlined. Impression: Stable scoliosis with advanced degenerative spondylosis. T12 compression fracture again present, with mild progressive loss of height since prior exam. Reviewed, dictated and finalized at location . Impression: Stable scoliosis with advanced degenerative spondylosis. T12 compression fracture again present, with mild progressive loss of height si nce prior exam.
== END 2022-09-23 10:57 | disposition home or self-care (01) ==
PROVIDERS: PCP Internal Medicine; Visit Provider Internal Medicine
DX: M54.50 Low back pain, unspecified (principal); M41.9 Scoliosis, unspecified
CPT/HCPCS: 72110

== ENCOUNTER → 2022-10-02 12:47 | Outpatient (CLI) | payer MEDICARE, BC, SELFPAY ==
--- NOTE | ~2022-10-02 | CT_ITS ---
EXAMINATION: CT lumbar spine wo con DATE: 10/02/2022 13:13 INDICATION: Vertebral compression fracture. TECHNIQUE: Computed tomography (CT) of the lumbar spine was performed without intravenous contrast. A utomated exposure control and iterative reconstruction technique were employed. The dose-length produ ct was 717.78 mGy-cm. COMPARISON: CT abdomen and pelvis 06/11/2017, lumbar spine radiographs 08/06/2022, 09/23/2022 FINDINGS: There is a 2.4 cm cyst in right kidney. There is 17 degrees levoscoliosis of lumbar spine. There are small ribs at L1. There is 4 mm anterolisthesis of L3 on L4. There is a burst fracture of T 12 with 3/5 loss of height and retropulsion of bone 5 mm into central spinal canal. There is a chroni c burst fracture of L1 with less than 1/5 loss of height and retropulsion of bone 2 mm into central s jayashree canal. There is severely decreased disc height from L1-L2 through L5-S1 with endplate remodelin g. The following disc levels are specifically discussed: T12-L1: The disc does not extend beyond the endplate margin. There is moderate bilateral facet joint osteoarthritis. There is mild bilateral neural foraminal stenosis. There is mild central canal stenos is. L1-L2: The disc is bulging. There is moderate bilateral facet joint osteoarthritis. There is mild park ateral neural foraminal stenosis. There is mild central canal stenosis. L2-L3: The disc is bulging. There is moderate bilateral facet joint osteoarthritis. There is moderate right and mild left neural foraminal stenosis. There is mild central canal stenosis. L3-L4: The disc is bulging. There is severe bilateral facet joint osteoarthritis. There is mild bilat eral neural foraminal stenosis. There is mild central canal stenosis. L4-L5: The disc is bulging. There is moderate right and severe left facet joint osteoarthritis. There is mild right and moderate left neural foraminal stenosis. There is mild central canal stenosis. L5-S1: The disc is bulging. There is moderate right and severe left facet joint osteoarthritis. There is moderate bilateral neural foraminal stenosis. There is mild central canal stenosis. IMPRESSION: 1. Subacute T12 burst fracture, stable from 09/23/2022. 2. Severe lumbar spondylosis. 3. Lumbar levoscoliosis. Reviewed, dictated and finalized at location E.
--- NOTE | ~2022-10-02 | CT_ITS ---
EXAMINATION: CT thoracic spine wo con DATE: 10/02/2022 13:13 INDICATION: Vertebral compression fracture. Low back pain. TECHNIQUE: Computed tomography (CT) of the thoracic spine was performed without intravenous contrast. Automated exposure control and iterative reconstruction technique were employed. The dose-length pro duct was 472.03 mGy-cm. COMPARISON: Lumbar spine radiographs 09/23/2022, 08/06/2022 FINDINGS: There is a small sliding hiatal hernia. There is 4 degrees levocurvature of upper thoracic spine. There is mild chronic anterior wedging of T6 vertebral body. There is a burst fracture of T12 vertebral body with 3/5 loss of height and retropulsion of bone 5 mm into central spinal canal. There is severe cervical spondylosis. There is multilevel disc height loss in thoracic spine, severe at T5 -T6, T6-T7, T9-T10, and T10-T11. There is multilevel facet joint osteoarthritis, severe bilaterally a t T2-T3 and T3-T4. On the right, there is mild neural foraminal stenosis at T3-T4, T4-T5, T10-T11, an d T11-T12. On the left, there is mild neural foraminal stenosis at T1-T2, T2-T3, T3-4, T4-T5, and T11 -T12. On the left, there is moderate neural foraminal stenosis at T10-T11. There is mild central myron l stenosis at tiny-T10, T10-T11, and T12-L1. IMPRESSION: 1. Subacute T12 burst fracture, stable from 09/23/2022. 2. Severe thoracic spondylosis. Reviewed, dictated and finalized at location E.
== END ==
PROVIDERS: PCP Internal Medicine; Visit Provider Internal Medicine Geriatric Medicine
DX: S22.081D Stable burst fracture of T11-T12 vertebra, subsequent encounter for fracture with routine healing (principal); M47.814 Spondylosis without myelopathy or radiculopathy, thoracic region; M41.86 Other forms of scoliosis, lumbar region; X58.XXXD Exposure to other specified factors, subsequent encounter
CPT/HCPCS: 72128; 72131

== ENCOUNTER → 2022-10-13 14:37 | Outpatient (CLI) | payer MEDICARE, BC, SELFPAY ==
--- NOTE | ~2022-10-13 | MR_ITS ---
EXAMINATION: MR lumbar spine wo con DATE: 10/13/2022 15:27 INDICATION: Vertebral compression fracture. TECHNIQUE: Magnetic resonance imaging (MRI) of the lumbar spine was performed without intravenous con trast. Sequences included sagittal T2-weighted FSE, sagittal T2-weighted FS FSE, sagittal T1-weighted FSE, and axial T2-weighted FSE. COMPARISON: CT lumbar spine 10/02/2022, CT abdomen and pelvis 06/11/17 FINDINGS: There is 20 degrees levoscoliosis of lumbar spine. There is 3 mm retrolisthesis of T12 on L 1 and 5 mm anterolisthesis of L3 on L4. There is a burst fracture of T12 with 3/5 loss of height, ret ropulsion of bone 5 mm into central spinal canal, and edema-like marrow signal intensity. There is a burst fracture of L1 with 1/5 loss of height, retropulsion of bone 2 mm into central spinal canal, an d edema-like marrow signal intensity. There is moderately decreased disc height at T12-L1 and severel y decreased disc height from L1-L2 through L5-S1 with endplate remodeling. There is increased T2-weig hted signal intensity in the spinal cord at T12. The conus medullaris is at L2. There are cysts in ri ght kidney measuring up to 2.6 cm. The following disc levels are specifically discussed: T12-L1: The disc is bulging and has an annular fissure. There is severe bilateral facet joint osteoar thritis. There is mild right and moderate left neural foraminal stenosis. There is mild central canal stenosis. L1-L2: The disc is bulging and has an annular fissure. There is moderate bilateral facet joint osteoa rthritis. There is mild bilateral neural foraminal stenosis. There is mild central canal stenosis. L2-L3: The disc is bulging and has an annular fissure. There is severe bilateral facet joint osteoart hritis. There is mild bilateral neural foraminal stenosis. There is mild central canal stenosis. L3-L4: The disc is bulging and has an annular fissure. There is severe bilateral facet joint osteoart hritis. There is mild bilateral neural foraminal stenosis. There is mild central canal stenosis. L4-L5: The disc is bulging and has an annular fissure. There is severe bilateral facet joint osteoart hritis. There is mild right and moderate left neural foraminal stenosis. There is mild central canal stenosis. L5-S1: The disc is bulging and has an annular fissure. There is moderate and severe left facet joint osteoarthritis. There is mild right and moderate left neural foraminal stenosis. There is mild centra l canal stenosis. IMPRESSION: 1. Subacute T12 and L1 burst fractures, stable from 10/02/22. 2. 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 3. Severe lumbar spondylosis. 4. Lumbar levoscoliosis. Reviewed, dictated and finalized at location A.
--- NOTE | ~2022-10-13 | MR_ITS ---
EXAMINATION: MR thoracic spine wo con DATE: 10/13/2022 15:27 INDICATION: Vertebral compression fracture. TECHNIQUE: Magnetic resonance imaging (MRI) of the thoracic spine was performed without intravenous c ontrast. Sagittal localizer T1-weighted FSE of the cervical spine was obtained. Thoracic spine sequen dinorah included sagittal T2-weighted FSE, sagittal T1-weighted FSE, sagittal T2-weighted FS FSE, and axi al T2-weighted FSE. COMPARISON: Thoracic spine CT 10/02/2022, lumbar spine MRI 10/13/22, cervical spine CT 06/23/21 FINDINGS: There are hypoplastic ribs at C7. There is dextrocurvature of thoracic spine. There is 3 mm retrolisthesis of T11 on T12. There is a burst fracture of T11 with 3/5 loss of height, retropulsion of bone 5 mm into central spinal canal, and edema-like marrow signal intensity. There is a burst fra cture of T12 with 1/5 loss of height, retropulsion of bone 2 mm into central spinal canal, and edema- like marrow signal intensity. There is decreased disc height at multiple levels, severe at T5-T6, T8- T9, and T9-T10. There is moderately decreased disc height at T11-T12. There is multilevel facet joint osteoarthritis. There is multilevel mild neural foraminal stenosis bilaterally. On the right, there is moderate neural foraminal stenosis at T9-T10. On the left, there is moderate neural foraminal sten osis at T9-T10. The conus medullaris is at L1. IMPRESSION: 1. Subacute T11 and T12 burst fractures, stable from 10/02/2022. 2. Severe thoracic spondylosis. Reviewed, dictated and finalized at location A.
== END ==
PROVIDERS: PCP Internal Medicine; Visit Provider Internal Medicine Geriatric Medicine
DX: S22.001A Stable burst fracture of unspecified thoracic vertebra, initial encounter for closed fracture (principal); X58.XXXA Exposure to other specified factors, initial encounter; M47.894 Other spondylosis, thoracic region; M47.896 Other spondylosis, lumbar region
CPT/HCPCS: 72146; 72148

== ENCOUNTER 2022-10-27 10:23 | Outpatient (CLI) | payer MEDICARE, BC, SELFPAY ==
--- NOTE | ~2022-10-27 | XR_ITS ---
EXAM: XR thoracolumbar DATE: 10/27/2022 10:41 HISTORY: COMPRESSION FX T11/T12- ORDER SPECIFIED BY ORDERING PHYS . COMPARISON: None available. FINDINGS: Tortuous mediastinal vessels and aorta. Aortic ectasia. Emphysematous/senescent changes in the lungs. Thoracolumbar scoliosis. Transitional L5 vertebral body. Hypoplastic/absent left rib at T1 2. Vertebroplasty cement at T11 and T12 where there is moderate and mild height loss, respectively. E xtravasated cement noted within adjacent vessels. Concave endplate deformities as can be seen with os teoporosis. Multilevel severe disc space narrowing and marginal osteophytosis. Vacuum phenomenon at m ultiple levels. Multilevel facet sclerosis and hypertrophy. L2 level interspinous Narrowing with scle rosis. IMPRESSION: Moderate T11 and mild T12 vertebral body compression fractures, treated with vertebroplas ty cement. Multilevel degenerative disc disease, facet arthropathy, and interspinous impingement Reviewed, dictated and finalized at location K. IMPRESSION: Moderate T11 and mild T12 vertebral body compression fractures, salud ated with vertebroplasty cement. Multilevel degenerative disc disease, facet ar thropathy, and interspinous impingement
== END 2022-10-27 10:24 | disposition home or self-care (01) ==
LOC: ANHIMG 10:28
PROVIDERS: PCP Internal Medicine; Visit Provider Neurological Surgery
DX: S22.000A Wedge compression fracture of unspecified thoracic vertebra, initial encounter for closed fracture (principal); X58.XXXA Exposure to other specified factors, initial encounter
CPT/HCPCS: 72080

== ENCOUNTER 2022-11-24 09:57 | Outpatient (CLI) | payer MEDICARE, BC, SELFPAY ==
[2022-11-24 10:42] LABS: Anion Gap 4 mmol/L (8-16); Blood Urea Nitrogen 15 mg/dL (7-17); Carbon Dioxide 33 mmol/L (22-30); Chloride 102 mmol/L (98-107); Cholesterol 186 mg/dL (0-200); Estimated Glomerular Filt Rate > 60; Glucose 123 mg/dL (65-110); HDL Direct 54 mg/dL; Potassium 3.8 mmol/L (3.4-5.0); Sodium 139 mmol/L (137-145); Triglycerides 127 mg/dL (<150)
[2022-11-24 10:53] LABS: LDL Cholesterol Direct 93 mg/dL
[2022-11-24 11:11] LABS: Thyroid Stimulating Hormone 0.042 uIU/mL (0.465-4.680)
== END 2022-11-24 09:58 | disposition home or self-care (01) ==
LOC: ANHLAB 09:59
PROVIDERS: PCP Internal Medicine; Visit Provider Internal Medicine
DX: E78.2 Mixed hyperlipidemia (principal); I10 Essential (primary) hypertension; E03.9 Hypothyroidism, unspecified
CPT/HCPCS: 36415; 80048; 80061; 84439; 84443

== ENCOUNTER 2022-12-10 10:31 | Outpatient (CLI) | payer MEDICARE, BC, SELFPAY ==
[2022-12-10 11:30] LABS: Free T4 Free Thyroxine 1.99 ng/mL (0.78-2.19)
[2022-12-10 11:31] LABS: Thyroid Stimulating Hormone 0.037 uIU/mL (0.465-4.680)
== END 2022-12-10 10:32 | disposition home or self-care (01) ==
PROVIDERS: PCP Internal Medicine; Visit Provider Internal Medicine
DX: E03.9 Hypothyroidism, unspecified (principal); Z79.899 Other long term (current) drug therapy
CPT/HCPCS: 36415; 84439; 84443

== ENCOUNTER 2023-01-01 13:11 | Outpatient (CLI) | payer MEDICARE, BC, SELFPAY ==
--- NOTE | ~2023-01-01 | CT_ITS ---
EXAMINATION: CT chest abdomen pelvis w con DATE: 01/01/2023 14:06 INDICATION: Abnormal weight loss. TECHNIQUE: Computed tomography (CT) of the chest, abdomen, and pelvis was performed with 100 mL Omnip aque 350 intravenous contrast. Automated exposure control and iterative reconstruction technique were employed. The dose-length product was 472.19 mGy-cm. COMPARISON: CT chest, abdomen, and pelvis 06/11/2017 FINDINGS: CHEST CT: There is mild scarring at right lung apex. There is mild atelectasis bilaterally. No pleural effusion . There is left atrial enlargement of the heart. There are coronary artery calcifications. No pericar dial effusion. There is severe cervical and thoracic spondylosis. There is a chronic burst fracture o f T12 with changes of vertebroplasty. ABDOMEN/PELVIS CT: There are cysts in the liver measuring up to 9 mm. The gallbladder is distended, likely secondary to fasting. The spleen, pancreas, and adrenal glands are normal. There is cortical thinning of the kidne ys. There are cysts in the kidneys measuring up to 2.7 cm on the right. There is diverticulosis of th e colon without evidence of diverticulitis. There are no dilated loops of bowel. There are no dilated loops of bowel. The appendix is not visualized. There are no pathologically enlarged lymph nodes. Th ere is no free intraperitoneal fluid. There is internal fixation of the proximal femora. There is sev ere lumbar spondylosis. There are changes of vertebroplasty in L1. IMPRESSION: 1. No evidence of malignancy. Reviewed, dictated and finalized at location A.
[2023-01-01 13:58] LABS: Estimated Glomerular Filt Rate > 60
== END 2023-01-01 13:12 | disposition home or self-care (01) ==
PROVIDERS: PCP Internal Medicine; Visit Provider Internal Medicine
DX: R63.4 Abnormal weight loss (principal)
CPT/HCPCS: 71260; 74177; Q9967

== ENCOUNTER 2023-01-22 10:39 | Outpatient (CLI) | payer MEDICARE, BC, SELFPAY ==
[2023-01-22 11:43] LABS: Thyroid Stimulating Hormone 0.111 uIU/mL (0.465-4.680)
[2023-01-22 12:09] LABS: Free T4 Free Thyroxine 1.35 ng/mL (0.78-2.19)
== END 2023-01-22 10:40 | disposition home or self-care (01) ==
PROVIDERS: PCP Internal Medicine; Visit Provider Internal Medicine
DX: E03.9 Hypothyroidism, unspecified (principal)
CPT/HCPCS: 36415; 84439; 84443

== ENCOUNTER 2023-06-25 09:11 | Emergency (ER) | payer MEDICARE, BC, SELFPAY ==
--- NOTE | ~2023-06-25 | XR_ITS ---
EXAMINATION: XR shoulder LT min 2V DATE: 06/25/2023 12:25 INDICATION: Left shoulder pain. Fall. TECHNIQUE: 4 views of left shoulder were obtained. COMPARISON: None. FINDINGS: Bone alignment is normal. No acute fracture. There is severe osteoarthritis of glenohumeral joint and mild osteoarthritis of acromioclavicular joint. There are old healed left rib fractures. IMPRESSION: 1. Polyarticular osteoarthritis. Reviewed, dictated and finalized at location A. DUST LABORER
--- NOTE | ~2023-06-25 | XR_ITS ---
EXAMINATION: XR shoulder RT min 2V DATE: 06/25/2023 12:25 INDICATION: Right shoulder pain. Fall. TECHNIQUE: 4 views of right shoulder were obtained. COMPARISON: None. FINDINGS: Bone alignment is normal. No acute fracture. There is moderate osteoarthritis of glenohumer al joint and acromioclavicular joint. There are old healed right rib fractures. IMPRESSION: 1. Polyarticular osteoarthritis. Reviewed, dictated and finalized at location A. OR GL ACCOUNTANT
--- NOTE | ~2023-06-25 | XR_ITS ---
EXAMINATION: XR chest 2V DATE: 06/25/2023 12:25 INDICATION: Severe chest pain. Fall. TECHNIQUE: Frontal and lateral views of the chest were obtained. COMPARISON: Chest 2 views 05/16/2022, chest CT 01/01/2023 FINDINGS: There are airspace opacities at left lung base. No pleural effusion or pneumothorax. The he art size is normal. There are changes of vertebroplasty at 2 levels. IMPRESSION: 1. Airspace opacities at left lung base, consistent with atelectasis versus pneumonia. Reviewed, dictated and finalized at location A. AL ASSISTANT IMPRESSION: 1. Airspace opacities at left lung base, consistent with atelectasis versus pne umonia.
--- NOTE | ~2023-06-25 | CT_ITS ---
EXAMINATION: CT brain wo con DATE: 06/25/2023 10:02 INDICATION: Patient fell on steps. Head injury. Neck pain. TECHNIQUE: Computed tomography (CT) of the head was performed without intravenous contrast. The mA wa s adjusted according to patient size. Iterative reconstruction technique was employed. Exam dose: 68 1.00 mGy-cm total exam DLP. COMPARISON: June 23, 2021 CT brain FINDINGS: Bilateral carotid siphon internal carotid artery and basilar artery calcifications. Chronic lacunar infarct of the right thalamus. No intracranial mass lesion or hemorrhage or cerebrovascular accident. No midline shift or mass effec t. No subdural or epidural hematoma. Moderate central and cortical cerebral and cerebellar volume los s consistent with patient chronological age. Very prominent mucoperiosteal thickening of the left maxillary sinus. Patchy soft tissue thickening o f the left ethmoid air cells. Mild focal mucoperiosteal thickening of the lateral wall of the right s phenoid sinus. The mastoid air cells are normally developed and aerated. No fracture or bone destruction of the cranial vault. There is mild left frontal cephalohematoma and laceration. No underlying skull fracture or intracrani al coup or contrecoup injury is detected. IMPRESSION: Left frontal cephalohematoma and laceration; no acute intracranial finding or skull frac ture. Chronic lacunar infarct of right thalamus Intracranial cerebral atherosclerosis Reviewed, dictated and finalized at [facility]. Reviewed, dictated and finalized at location D. 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 Chronic lacunar infarct of right thalamus Intracranial cerebral atherosclerosis
--- NOTE | ~2023-06-25 | CT_ITS ---
EXAMINATION: CT cervical spine wo con DATE: 06/25/2023 10:02 INDICATION: Head injury. Neck pain. TECHNIQUE: Computed tomography (CT) of the cervical spine was performed without intravenous contrast. Automated exposure control and iterative reconstruction technique were employed. The dose-length pro duct was 253.57 mGy-cm. COMPARISON: CT cervical spine 06/23/2021 FINDINGS: There is 3 degrees levocurvature of cervical spine. There is mild kyphosis of upper cervica l spine. There is mild chronic anterior wedging of C5 vertebral body. There is severely decreased dis c height from C2-C3 through C6-C7. The following disc levels are specifically discussed: C2-C3: There is severe bilateral uncovertebral joint osteoarthritis. There is mild right and moderate left facet joint osteoarthritis. There is mild left neural foraminal stenosis. There is no central c anal stenosis. C3-C4: There is severe bilateral uncovertebral joint osteoarthritis. There is moderate bilateral face t joint osteoarthritis. There is mild bilateral neural foraminal stenosis. There is mild central myron l stenosis. C4-C5: There is severe bilateral uncovertebral joint osteoarthritis. There is moderate right and surekha re left facet joint osteoarthritis. There is mild bilateral neural foraminal stenosis. There is mild central canal stenosis. C5-C6: There is severe bilateral uncovertebral joint osteoarthritis. There is severe bilateral facet joint osteoarthritis. There is mild right and moderate left neural foraminal stenosis. There is mild central canal stenosis. C6-C7: There is severe bilateral uncovertebral joint osteoarthritis. There is moderate bilateral face t joint osteoarthritis. There is mild bilateral neural foraminal stenosis. There is mild central myron l stenosis. C7-T1: There is no uncovertebral joint osteoarthritis. There is mild right and severe left facet join t osteoarthritis. There is mild left neural foraminal stenosis. There is no central canal stenosis. IMPRESSION: 1. No fracture. 2. Severe cervical spondylosis. Reviewed, dictated and finalized at location A. 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
[2023-06-25 09:15] VITALS: BP 147/57; PULSE 55; RESP 16; TEMP 36.4; O2SAT 95
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
[2023-06-25 11:24] VITALS: BP 164/67; PULSE 54; RESP 15; O2SAT 100
[2023-06-25] MEDS: TETANUS,DIPHTHERIA,AC PERTUSSIS ADULT (0.5 ML) BOOSTRIX IM (12:55)
[2023-06-25] MEDS: ACETAMINOPHEN 500 MG TABLET 1000 MG PO (12:57)
[2023-06-25 16:18] VITALS: BP 143/60; PULSE 56; RESP 15; TEMP 36.8; O2SAT 99
== END 2023-06-25 16:21 | disposition home or self-care (01) ==
PROVIDERS: Emergency Provider Student in an Organized Health Care Education/Training Program; PCP Internal Medicine
DX: S01.80XA Unspecified open wound of other part of head, initial encounter (principal); Z23 Encounter for immunization; I10 Essential (primary) hypertension; K21.9 Gastro-esophageal reflux disease without esophagitis; E78.5 Hyperlipidemia, unspecified; Z86.73 Personal history of transient ischemic attack (TIA), and cerebral infarction without residual deficits; M85.80 Other specified disorders of bone density and structure, unspecified site; E03.9 Hypothyroidism, unspecified; Z79.82 Long term (current) use of aspirin; I67.2 Cerebral atherosclerosis; M47.812 Spondylosis without myelopathy or radiculopathy, cervical region; M19.012 Primary osteoarthritis, left shoulder; M19.011 Primary osteoarthritis, right shoulder; R91.8 Other nonspecific abnormal finding of lung field; W10.9XXA Fall (on) (from) unspecified stairs and steps, initial encounter
CPT/HCPCS: 12013; 70450; 71046; 72125; 73030; 90471; 90715; 99284; A9270

== ENCOUNTER 2023-07-13 08:30 | Outpatient (CLI) | payer MEDICARE, BC, SELFPAY ==
[2023-07-13 08:59] LABS: Alanine Aminotransferase 19 U/L (6-35); Albumin Level 3.8 g/dL (3.5-5.1); Alkaline Phosphatase 87 U/L (38-126); Anion Gap 4 mmol/L (8-16); Aspartate Amino Transferase 35 U/L (14-36); Bilirubin,Total 0.8 mg/dL (0.2-1.3); Blood Urea Nitrogen 20 mg/dL (7-17); Carbon Dioxide 28 mmol/L (22-30); Chloride 103 mmol/L (98-107); Cholesterol 189 mg/dL (0-200); Estimated Glomerular Filt Rate > 60; Glucose 103 mg/dL (65-110); HDL Direct 65 mg/dL; Potassium 4.1 mmol/L (3.4-5.0); Sodium 135 mmol/L (137-145); Triglycerides 120 mg/dL (<150)
[2023-07-13 09:10] LABS: LDL Cholesterol Direct 106 mg/dL
[2023-07-13 09:58] LABS: Free T4 Free Thyroxine 1.05 ng/mL (0.78-2.19); Vitamin D 25 Hydroxy 58.5 ng/mL
== END 2023-07-13 08:31 | disposition home or self-care (01) ==
LOC: ANHLAB 08:34
PROVIDERS: PCP Internal Medicine; Visit Provider Internal Medicine
DX: I10 Essential (primary) hypertension (principal); E03.9 Hypothyroidism, unspecified; E55.9 Vitamin D deficiency, unspecified; E78.5 Hyperlipidemia, unspecified
CPT/HCPCS: 36415; 80053; 80061; 82306; 84439; 84443

== ENCOUNTER 2023-07-29 07:22 | Outpatient (CLI) | payer MEDICARE, BC, SELFPAY ==
--- NOTE | ~2023-07-29 | US_ITS ---
EXAMINATION: US carotid duplex BI DATE: 07/29/2023 08:45 INDICATION: Carotid atherosclerosis and stenosis with worsening carotid bruit TECHNIQUE: Grayscale, color Doppler, and pulsed Doppler images of the cervical carotid arteries were obtained. The degree of vessel stenosis is placed in one of the following categories: normal, <50%, 5 0-69%, >=70% but less than near-occlusion, near-occlusion, or total occlusion. Note that percent sten osis relative to normal distal artery lumen diameter is indirectly measured from velocity measurement s as described by Tae, et al. Radiology 2003; 229:340-346. COMPARISON: 07/30/2022 FINDINGS: RIGHT: The right common carotid artery (CCA) peak systolic velocity (PSV) is 80 cm/s. The right internal car otid artery (ICA) PSV is 118 cm/s. The right ICA end-diastolic velocity (EDV) is 22 cm/s. The right I CA/CCA PSV ratio is 1.5. Grayscale and color Doppler images yield an estimate of <50% diameter reduct ion from plaque in the ICA. The external carotid artery (ECA) PSV is 91 cm/s. There is antegrade flow in the right vertebral artery. LEFT: The left CCA PSV is 112 cm/s. The left ICA PSV is 87 cm/s. The left ICA EDV is 18 cm/s. The left ICA/ CCA PSV ratio is 0.8. Grayscale and color Doppler images yield an estimate of <50% diameter reduction from plaque in the ICA. The ECA PSV is 87 cm/s. There is antegrade flow in the left vertebral artery . IMPRESSION: 1. <50% stenosis in the right internal carotid artery. 2. <50% stenosis in the left internal carotid artery. Reviewed, dictated and finalized at location A.
== END 2023-07-29 07:23 | disposition home or self-care (01) ==
PROVIDERS: PCP Internal Medicine; Visit Provider Internal Medicine
DX: R09.89 Other specified symptoms and signs involving the circulatory and respiratory systems (principal); I65.23 Occlusion and stenosis of bilateral carotid arteries
CPT/HCPCS: 93880

== ENCOUNTER 2023-08-02 15:17 | Inpatient (IN) | payer MEDICARE, BC, SELFPAY ==
[2023-08-02] VITALS (16 sets, daily range): BP systolic 105–128; BP diastolic 44–75; PULSE 59–93; RESP 16–20; TEMP 36.6–37.3; O2SAT 96–100
--- NOTE | ~2023-08-02 | CT_ITS ---
EXAMINATION: CT cervical spine wo con DATE: 08/02/2023 19:22 INDICATION: Neck pain TECHNIQUE: Computed tomography (CT) of the cervical spine was performed without intravenous contrast. Automated exposure control and iterative reconstruction technique were employed. The dose-length pro duct was 237.14 mGy-cm. COMPARISON: 06/25/2023. FINDINGS: Vertebral Body Alignment: Intact. Reversed lordosis centered at C3. Craniocervical and atlantoaxial alignment: Moderate degenerative change. Alignment intact. Osseous structures/fracture: No evidence of a lytic or blastic process in the visualized spine. No e vidence of acute fracture. Chronic mild anterior wedge deformity at C5. Cervical soft tissues: The paraspinal soft tissues planes are maintained. Mild biapical pleural scarr ing. Degenerative changes: Multilevel severe degenerative disc disease. Moderate-severe left neural forami nal narrowing at C5-6. No severe central canal narrowing. IMPRESSION: No acute fracture or traumatic malalignment in the cervical spine. Reviewed, dictated and finalized at location K.
--- NOTE | ~2023-08-02 | XR_ITS ---
EXAMINATION: XR chest 2V Exam Date/Time: 08/02/2023 19:19 CDT HISTORY: weakness Comparison: 06/25/2023. RESULT: Lines, tubes, and devices: None. Lungs and pleura: Senescent changes, otherwise clear. Cardiomediastinal silhouette: Stable. Other: No acute osseous or upper abdominal finding. Multilevel vertebroplasty cement. IMPRESSION: No acute cardiopulmonary process. Reviewed, dictated and finalized at location K.
--- NOTE | ~2023-08-02 | CT_ITS ---
EXAMINATION: CT brain wo con DATE: 08/02/2023 19:22 INDICATION: Headache . TECHNIQUE: Computed tomography (CT) of the head was performed without intravenous contrast. The mA wa s adjusted according to patient size. Iterative reconstruction technique was employed. The dose-lengt h product was 832.33 mGy-cm. COMPARISON: 06/25/2023. FINDINGS: No acute intracranial hemorrhage or extra-axial fluid collection. No hydrocephalus, mass, or herniation. No acute ischemic infarct. Unremarkable dural venous sinus attenuation. No acute osseous abnormality. Air-fluid level in left maxillary sinus, mild ethmoid mucosal thickening, the remaining aerated space s are clear. Mild atrophy and chronic white matter change. Atherosclerotic intracranial calcification. Bilateral l ens replacements. Chronic lacunar infarct of the right thalamus. IMPRESSION: No acute intracranial process. Left maxillary air-fluid level, may represent acute sinusitis in the appropriate clinical context. Reviewed, dictated and finalized at location K. IMPRESSION: No acute intracranial process. Left maxillary air-fluid level, may represent acute sinusitis in the appropriat e clinical context.
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
--- NOTE | 2023-08-02 18:07 | ECG_ITS ---
Measurements Intervals [place] Rate: 66 P: 78 DE: 144 QRS: 19 QRSD: 91 T: 33 QT: 414 QTc: 435 Interpretive Statements SINUS RHYTHM BASELINE ARTIFACT- I, II, III, AVR, AVL, AVF, V1-V3 NORMAL ECG COMPARED TO ECG 07/03/2018 08:31:44 SINUS RHYTHM NOW PRESENT Electronically Signed On 08-02-2023 21:05:05 CDT by Neno Jha D.O.
[2023-08-02] MEDS: SODIUM CHLORIDE 0.9% IV 1,000 ML 999 ML IV CONT (18:44)
[2023-08-02] MEDS: MORPHINE SULFATE (*CRX) 2 MG/ML INJ IV PUSH (18:57)
[2023-08-02] MEDS: ONDANSETRON INJ 4 MG/2 ML VIAL IV PUSH (18:57)
[2023-08-02] MEDS: ACETAMINOPHEN 325 MG TABLET 650 MG PO (18:57)
[2023-08-02 19:01] LABS: Basophils Absolute Auto 0.1 K/mm3 (0.0-0.1); Basophils Percent Auto 0.3 % (0.2-1.2); Eosinophils Percent Auto 0.1 % (0-4.4); Hematocrit 38.5 % (37.0-47.0); Hemoglobin 12.6 g/dL (12.0-15.0); Immature Granulocyte Absolute 0.15 K/mm3 (0.00-0.031); Immature Granulocyte Percent A 0.6 % (0-0.5); Lymphocytes Absolute Auto 2.16 K/mm3 (0.9-3.2); Mean Corpuscular HGB Conc 32.7 g/dl (32-36); Mean Corpuscular Hemoglobin 32.3 pg (26-34); Mean Corpuscular Volume 98.7 fl (80-100); Mean Platelet Volume 10.4 fl (7.4-10.4); Monocytes Absolute Auto 2.5 K/mm3 (0.1-0.6); Monocytes Percent Auto 9.3 % (2.6-8.5); Neutrophils Absolute Auto 22.1 K/mm3 (1.3-6.7); Neutrophils Percent Auto 81.7 % (45.5-73.1); Platelet Count Result 240 k/mm3 (150-375); Red Cell Distribution Width 12.3 % (11.5-14.5)
[2023-08-02 19:14] LABS: Prothrombin Time 14.2 Seconds (11.1-14.7)
[2023-08-02 19:24] LABS: Alanine Aminotransferase 16 U/L (6-35); Albumin Level 3.6 g/dL (3.5-5.1); Alkaline Phosphatase 90 U/L (38-126); Anion Gap 8 mmol/L (8-16); Aspartate Amino Transferase 25 U/L (14-36); Bilirubin,Total 0.7 mg/dL (0.2-1.3); Blood Urea Nitrogen 33 mg/dL (7-17); Calcium 9.3 mg/dL (8.4-10.2); Carbon Dioxide 28 mmol/L (22-30); Chloride 102 mmol/L (98-107); Estimated CRCL calculation 32 ml/min; Estimated Glomerular Filt Rate 53; Glucose 92 mg/dL (65-110); Potassium 3.9 mmol/L (3.4-5.0); Sodium 138 mmol/L (137-145)
[2023-08-02 19:25] LABS: Lactic Acid Reflex 1.2 mmol/L (0.7-2.0)
--- NOTE | 2023-08-02 19:26 | PC.NURSE ---
BSSR received from Concepcion DONATO and Manuela DONATO at this time. Pt at CT at this time.
[2023-08-02 19:35] LABS: Troponin I < 0.012 ng/mL (0.000-0.034)
[2023-08-02 19:36] LABS: Influenza A QL RT-PCR Negative (Negative); Influenza B QL RT-PCR Negative (Negative); RSV RNA, RT-PCR Negative (Negative); SARS-CoV-2 RNA PCR Negative (Negative)
[2023-08-02 19:59] LABS: Add Urine Microscopic? YES; Appearance Urine Cloudy (Clear); Color Urine Yellow (Yellow); Glucose Urine UA Negative (Negative); Protein Urine 3+ mg/dL (Negative); pH Urine 5.5 (5.0-9.0)
[2023-08-02 20:00] LABS: Bilirubin Urine 1+ (Negative); Blood Urine 2+ (Negative); Ketones Urine 1+ mg/dL (Negative); Leukocyte Esterase Ur 1+ LEU/UL (Negative); Nitrate Urine Positive (Negative); Urobilinogen Urine 0.2 mg/dL (<2.0); WBC Urine 51-100 /hpf (0-3)
[2023-08-02 20:01] LABS: Bacteria Urine 2+ /hpf; Squamous Epithelial Cell Urine Rare /hpf (Few)
--- NOTE | 2023-08-02 20:32 | PC.NURSE ---
EDP Dr. Michael WALKER 1G jose SOARES.
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
--- NOTE | 2023-08-02 21:21 | PHAR ---
TALKED WITH DR GARCIA IN ER. HE OK'D MEROPENEM SCHEDULE CHANGE TO Q12HR BASED ON CRCL OF 32 ML/MIN CW/RPH
[2023-08-02] MEDS: SODIUM CHLORIDE 0.9% IV 1,000 ML 75 ML IV CONT (22:03)
[2023-08-02] MEDS: MEROPENEM 1 GM/NS 100 ML 1 GM/100 ML BAG IVPB (22:04)
--- NOTE | 2023-08-02 23:20 | ADMGEN ---
This patient, Jonna Velazco, was admitted to 2 Medical Room 259-. Patient/family oriented to hospital policies and general routines including ID bracelet, bed and alarms, visiting hours, pain management, procedures, bathroom and other care routines, personal items, smoking policy, room service/diet, and visiting hours. Information on how to activate the Rapid Response Team has been discussed. Patient/Family are encouraged to report perceived risks to care and to ask questions if they do not understand what they are told or what they should do.
[2023-08-03] VITALS (12 sets, daily range): BP systolic 79–138; BP diastolic 35–97; PULSE 64–130; RESP 14–26; TEMP 36.7–38.3; O2SAT 90–98
[2023-08-03] MEDS: ACETAMINOPHEN 325 MG TABLET 650 MG PO (03:46)
--- NOTE | 2023-08-03 05:29 | ECG_ITS ---
Measurements Intervals [place] Rate: 125 P: 22 AL: 126 QRS: -13 QRSD: 101 T: 31 QT: 330 QTc: 476 Interpretive Statements SINUS TACHYCARDIA DELAYED PRECORDIAL R/S TRANSITION BORDERLINE ST-T WAVE ABNORMALITY- INF/HIGH LAT LEADS BASELINE WANDER- I, II, III, AVR, AVL, AVF, V1-V6 ABNORMAL ECG COMPARED TO ECG 08/02/2023 18:49:31 [address] NOW PRESENT ST (T WAVE) DEVIATION NOW PRESENT Electronically Signed On 08-03-2023 6:34:52 CDT by Neno Jha D.O.
--- NOTE | 2023-08-03 07:45 | PM.IMPN ---
Progress Note: A&P Assessment and Plan (1) Urinary tract infection: Code(s): N39.0 - Urinary tract infection, site not specified Status: Acute Assessment and Plan: Urosepsis U/A with positive nitrate, +1 leukocyte esterase, 2+ bacteria Leukocytosis 27,000 T-max 101. Received Tylenol p.r.n. Tachycardic 130s, blood pressure soft 90s over 60s Ordered telemetry Q 4 vitals Will give a second bolus of NS now and continue maintenance fluids but increased to 100 ml/hr. Fluid resuscitation for 30ml/kg achieved. Lactic pending Blood cultures and urine cultures pending (2) GERD (gastroesophageal reflux disease): Qualifiers: Esophagitis presence: esophagitis presence not specified Qualified Code(s): K21.9 - Gastro-esophageal reflux disease without esophagitis Code(s): K21.9 - Gastro-esophageal reflux disease without esophagitis Status: Acute Assessment and Plan: Stable Protonix 40 mg PO daily (3) Benign essential hypertension: Code(s): I10 - Essential (primary) hypertension Status: Acute Assessment and Plan: Currently on candesartan 32 mg and metoprolol succinate 25 mg Hypotensive in the setting of an infection Holding antihypertensives at this time Plan Feeding: Heart healthy diet Analgesia: Tylenol Thromboembolic prophylaxis: Lovenox Ulcer prophylaxis: Ppi Glycemic control: Bowel regimen: Lines: Antibiotics: Meropenem Disposition: When medically stable. Subjective Date/time seen: 08/03/23 07:45 Interval history: This is an 87-year-old female with a past medical history of GERD, CVA, hyperlipidemia, hypertension and hypothyroidism. She presented to the ER with complaints of generalized weakness. In the ER she was found to have a leukocytosis of 27,000 with a left shift in UA concerning for UTI. She was admitted for treatment of her UTI. She is seen resting in bed in no acute distress. Overall she looks well. Her only complaint is that she is weak. She does not complain of dysuria but she does note some suprapubic tenderness with position changes. She also reports a headache. This morning her blood pressure is 90/60 and heart rate is in the 130s. Lactic was normal. She says that she lives alone as her recently last month. Her daughter, Luis, lives 5 blocks from her and stays with her overnight. Review of Systems Review of Systems: All systems reviewed & are unremarkable except as noted in HPI and below Exam Narrative: General: well appearing, well developed, well nourished, appears stated age. HEENT: normocephalic, atraumatic. Mucous membranes moist. EOMI, PERRLA, bilateral sclera anicteric, no conjunctival injection. Neck supple without JVD, lymphadenopathy, or bruit. Respiratory: clear to auscultation bilaterally. No rales/rhonic/wheezes. Cardiovascular: Regular rate and rhythm, normal S1-S2 upon auscultation. No murmurs, rubs, or clicks. PMI is nondisplaced, capillary re-fill less than 3 second. Abdomen: Soft, round, no pulsatile masses, non-distended and non-tender. No rebound, no guarding. No CVA tenderness, no hepatosplenomegaly. Bowel sounds present to all four quadrants. No high pitch or tinkling sounds, resonant to percussion. Extremities: No cyanosis, clubbing, or edema present. Pulses are palpable 2/2. Active ROM to all four extremities. Neuro: Alert and orientated x 4. PERRLA. Cranial nerves 2-12 intact without focal deficit. Skin: Warm, dry, and intact, without rash, erythema, or lesion. Lines: Incisions: Psych: pleasant, cooperative, normal speech, normal affect, no hallucinations, no dysarthria Objective Data Vital Signs Vital Signs: Vital Signs - 24 hr 08/02/23 15:18 08/02/23 16:39 08/02/23 16:42 Temperature 97.8 F Pulse Rate 93 59 L Respiratory Rate 18 18 18 Blood Pressure 128/50 L 105/48 L Pulse Oximetry 96 98 98 Oxygen Delivery 08/02/23 16:21
[2023-08-03 08:11] LABS: Basophils Absolute Auto 0.1 K/mm3 (0.0-0.1); Basophils Percent Auto 0.4 % (0.2-1.2); Hematocrit 36.1 % (37.0-47.0); Hemoglobin 11.5 g/dL (12.0-15.0); Immature Granulocyte Absolute 0.18 K/mm3 (0.00-0.031); Immature Granulocyte Percent A 0.8 % (0-0.5); Lymphocytes Absolute Auto 0.38 K/mm3 (0.9-3.2); Lymphocytes Percent Auto 1.6 % (18.3-44.2); Mean Corpuscular HGB Conc 31.9 g/dl (32-36); Mean Corpuscular Hemoglobin 32.5 pg (26-34); Mean Platelet Volume 9.8 fl (7.4-10.4); Monocytes Absolute Auto 1.3 K/mm3 (0.1-0.6); Monocytes Percent Auto 5.6 % (2.6-8.5); Neutrophils Absolute Auto 21.8 K/mm3 (1.3-6.7); Neutrophils Percent Auto 91.6 % (45.5-73.1); Platelet Count Result 183 k/mm3 (150-375); Red Blood Count 3.54 M/mm3 (4.2-5.4); Red Cell Distribution Width 12.1 % (11.5-14.5); White Blood Count 23.7 K/mm3 (4.5-10.0)
[2023-08-03 08:21] LABS: Alanine Aminotransferase 16 U/L (6-35); Albumin Level 3.2 g/dL (3.5-5.1); Alkaline Phosphatase 134 U/L (38-126); Anion Gap 5 mmol/L (8-16); Aspartate Amino Transferase 31 U/L (14-36); Bilirubin,Total 0.7 mg/dL (0.2-1.3); Blood Urea Nitrogen 32 mg/dL (7-17); Calcium 8.6 mg/dL (8.4-10.2); Carbon Dioxide 25 mmol/L (22-30); Chloride 108 mmol/L (98-107); Estimated CRCL calculation 29 ml/min; Estimated Glomerular Filt Rate 47; Glucose 100 mg/dL (65-110); Lactic Acid Reflex 1.2 mmol/L (0.7-2.0); Magnesium 1.6 mg/dL (1.6-2.3); Sodium 138 mmol/L (137-145)
[2023-08-03] MEDS: CHOLECALCIFEROL 400 UNITS TABLET (VIT D) PO (08:41)
[2023-08-03] MEDS: PANTOPRAZOLE 40 MG TABLET PO (08:41)
[2023-08-03] MEDS: MULTIVITAMINS THERAPEUTIC TAB (*BKC) 1 TABLET PO (08:41)
[2023-08-03] MEDS: MEROPENEM 1 GM/NS 100 ML 1 GM/100 ML BAG IVPB (08:41)
[2023-08-03] MEDS: PARoxetine 20 MG TABLET 40 MG PO (08:42)
[2023-08-03] MEDS: ASPIRIN 81 MG ENTERIC TABLET PO (08:42)
[2023-08-03] MEDS: ASCORBIC ACID 500 MG TABLET PO (08:42)
[2023-08-03] MEDS: CALCIUM CARBONATE (TUMS) 500 MG (200 MG ELEMENTAL) 600 MG BY MOUTH (08:42)
[2023-08-03] MEDS: CYANOCOBALAMIN 1,000 MCG TABLET 1000 MCG PO (08:48)
[2023-08-03] MEDS: SODIUM CHLORIDE 0.9% IV 1,000 ML 999 ML IV CONT (08:49)
[2023-08-03] MEDS: SODIUM CHLORIDE 0.9% IV 1,000 ML 75 ML IV CONT (12:44)
[2023-08-03] MEDS: LEVOTHYROXINE SODIUM 112 MCG TABLET PO (12:48)
[2023-08-03] MEDS: ENOXAPARIN 40 MG/0.4 ML SYRINGE SUB-Q (16:43)
[2023-08-03] MEDS: cefTRIAXone 2 GM/NS 100 ML 2 GM/100 ML BAG IVPB (22:14)
[2023-08-04] VITALS (10 sets, daily range): BP systolic 120–145; BP diastolic 49–61; PULSE 65–88; RESP 16–17; TEMP 36.3–36.9; O2SAT 95–100
[2023-08-04 05:59] LABS: Basophils Absolute Auto 0.1 K/mm3 (0.0-0.1); Basophils Percent Auto 0.3 % (0.2-1.2); Eosinophils Absolute Auto 0.2 K/mm3 (0-0.3); Eosinophils Percent Auto 0.8 % (0-4.4); Hematocrit 32.8 % (37.0-47.0); Hemoglobin 10.2 g/dL (12.0-15.0); Immature Granulocyte Absolute 0.19 K/mm3 (0.00-0.031); Immature Granulocyte Percent A 0.8 % (0-0.5); Lymphocytes Absolute Auto 1.91 K/mm3 (0.9-3.2); Lymphocytes Percent Auto 8.4 % (18.3-44.2); Mean Corpuscular HGB Conc 31.1 g/dl (32-36); Mean Corpuscular Volume 102.8 fl (80-100); Mean Platelet Volume 10.5 fl (7.4-10.4); Monocytes Absolute Auto 2.4 K/mm3 (0.1-0.6); Monocytes Percent Auto 10.4 % (2.6-8.5); Neutrophils Absolute Auto 17.9 K/mm3 (1.3-6.7); Neutrophils Percent Auto 79.3 % (45.5-73.1); Platelet Count Result 181 k/mm3 (150-375); Red Blood Count 3.19 M/mm3 (4.2-5.4); Red Cell Distribution Width 12.2 % (11.5-14.5); White Blood Count 22.6 K/mm3 (4.5-10.0)
[2023-08-04 06:08] LABS: Alanine Aminotransferase 12 U/L (6-35); Albumin Level 2.7 g/dL (3.5-5.1); Alkaline Phosphatase 90 U/L (38-126); Anion Gap 4 mmol/L (8-16); Aspartate Amino Transferase 24 U/L (14-36); Bilirubin,Total 0.3 mg/dL (0.2-1.3); Blood Urea Nitrogen 27 mg/dL (7-17); Carbon Dioxide 22 mmol/L (22-30); Chloride 111 mmol/L (98-107); Estimated CRCL calculation 39 ml/min; Estimated Glomerular Filt Rate > 60; Glucose 88 mg/dL (65-110); Magnesium 1.9 mg/dL (1.6-2.3); Potassium 3.6 mmol/L (3.4-5.0); Sodium 137 mmol/L (137-145)
[2023-08-04] MEDS: LEVOTHYROXINE SODIUM 112 MCG TABLET PO (06:09)
--- NOTE | 2023-08-04 07:11 | PM.IMPN ---
Progress Note: A&P Assessment and Plan (1) Urinary tract infection: Code(s): N39.0 - Urinary tract infection, site not specified Status: Acute Assessment and Plan: Urosepsis U/A with positive nitrate, +1 leukocyte esterase, 2+ bacteria Leukocytosis 27,000 T-max 101. Received Tylenol p.r.n. Tachycardic 130s, blood pressure soft 90s over 60s Ordered telemetry Q 4 vitals Will give a second bolus of NS now and continue maintenance fluids but increased to 100 ml/hr. Fluid resuscitation for 30ml/kg achieved. Lactic pending Blood cultures and urine cultures pending 08/04/23: Leukocytosis is down trending, WBC 22 Afebrile overnight Tachycardia has resolved with IV fluids Blood pressures improved SBP 120-130 Blood cultures 1 of 2 bottles with Gram-negative bacilli. Could be contaminant however less likely given picture of urosepsis. Rocephin was increased to 2 g Repeat blood cultures ordered for the morning (2) GERD (gastroesophageal reflux disease): Qualifiers: Esophagitis presence: esophagitis presence not specified Qualified Code(s): K21.9 - Gastro-esophageal reflux disease without esophagitis Code(s): K21.9 - Gastro-esophageal reflux disease without esophagitis Status: Acute Assessment and Plan: Stable Protonix 40 mg PO daily (3) Benign essential hypertension: Code(s): I10 - Essential (primary) hypertension Status: Acute Assessment and Plan: Currently on candesartan 32 mg and metoprolol succinate 25 mg Hypotensive in the setting of an infection Holding antihypertensives at this time 08/04/23: Blood pressures reviewed 140s over 60s Monitor blood pressures If white blood cell count continues to decrease likely we can restart home meds tomorrow Plan Feeding: Heart healthy diet Analgesia: Tylenol Thromboembolic prophylaxis: Lovenox Ulcer prophylaxis: PPI Glycemic control: Bowel regimen: Lines: Antibiotics: Rocephin 2 g Disposition: When medically stable Subjective Date/time seen: 08/04/23 07:11 Interval history: This is an 87-year-old female with a past medical history of GERD, CVA, hyperlipidemia, hypertension and hypothyroidism. She presented to the ER with complaints of generalized weakness. In the ER she was found to have a leukocytosis of 27,000 with a left shift in UA concerning for UTI. She was admitted for treatment of her UTI. She is seen resting in bed in no acute distress. Overall she looks well. Her only complaint is that she is weak. She does not complain of dysuria but she does note some suprapubic tenderness with position changes. She also reports a headache. This morning her blood pressure is 90/60 and heart rate is in the 130s. Lactic was normal. She says that she lives alone as her recently last month. Her daughter, Luis, lives 5 blocks from her and stays with her overnight. Interval history 08/03: Mrs. Kimble is seen sitting up in her chair. She appears well and is in no acute distress. She says that her suprapubic abdominal pain is gone. She does report some wheezing when she was lying in bed but since she has gotten up to the chair that has resolved. Lungs are clear to auscultation. I discussed with her and her daughter Luis positive blood cultures concerning for Gram-negative bacilli. 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 Will repeat blood cultures in the morning. Continue to await sensitivities. I did discuss with them the possibility of needing IV antibiotics if there is antibiotic resistance. They understand and have no questions at this time. Review of Systems Review of Systems: All systems reviewed & are unremarkable except as noted in HPI and below Exam Narrative: General: well appearing, well developed, well nourished, appears stated age. HEENT: normocephalic, atraumatic. Mucous membranes moist. EOMI, PERRLA, bilateral sclera anict
[2023-08-04] MEDS: CALCIUM CARBONATE (TUMS) 500 MG (200 MG ELEMENTAL) 600 MG BY MOUTH (08:23)
[2023-08-04] MEDS: PARoxetine 20 MG TABLET 40 MG PO (08:23)
[2023-08-04] MEDS: CHOLECALCIFEROL 400 UNITS TABLET (VIT D) PO (08:23)
[2023-08-04] MEDS: CYANOCOBALAMIN 1,000 MCG TABLET 1000 MCG PO (08:23)
[2023-08-04] MEDS: ASPIRIN 81 MG ENTERIC TABLET PO (08:23)
[2023-08-04] MEDS: PANTOPRAZOLE 40 MG TABLET PO (08:24)
[2023-08-04] MEDS: MULTIVITAMINS THERAPEUTIC TAB (*BKC) 1 TABLET PO (08:24)
[2023-08-04] MEDS: ASCORBIC ACID 500 MG TABLET PO (08:24)
[2023-08-04] MEDS: ENOXAPARIN 40 MG/0.4 ML SYRINGE SUB-Q (08:31)
[2023-08-04] MEDS: SODIUM CHLORIDE 0.9% IV 1,000 ML 100 ML IV CONT (14:51)
--- NOTE | 2023-08-04 14:58 | PCCCNOTE ---
On 08/04/23, the student, [Krissy Nj], provided care and completed [facility] documentation on this patient. I have reviewed the student's documentation and agree with the findings.
[2023-08-04] MEDS: ACETAMINOPHEN 325 MG TABLET 650 MG PO (20:20)
[2023-08-04] MEDS: cefTRIAXone 2 GM/NS 100 ML 2 GM/100 ML BAG IVPB (20:21)
[2023-08-05] VITALS (9 sets, daily range): BP systolic 137–161; BP diastolic 58–70; PULSE 60–85; RESP 18–22; TEMP 36.5–37.2; O2SAT 95–100
[2023-08-05] MEDS: SODIUM CHLORIDE 0.9% IV 1,000 ML 100 ML IV CONT ×3 (00:45→20:30)
[2023-08-05] MEDS: LEVOTHYROXINE SODIUM 112 MCG TABLET PO (05:47)
[2023-08-05 05:48] LABS: Basophils Absolute Auto 0.1 K/mm3 (0.0-0.1); Basophils Percent Auto 0.4 % (0.2-1.2); Eosinophils Absolute Auto 0.3 K/mm3 (0-0.3); Eosinophils Percent Auto 2.1 % (0-4.4); Hematocrit 34.1 % (37.0-47.0); Hemoglobin 10.7 g/dL (12.0-15.0); Immature Granulocyte Absolute 0.09 K/mm3 (0.00-0.031); Immature Granulocyte Percent A 0.8 % (0-0.5); Lymphocytes Absolute Auto 1.28 K/mm3 (0.9-3.2); Lymphocytes Percent Auto 10.9 % (18.3-44.2); Mean Corpuscular HGB Conc 31.4 g/dl (32-36); Mean Corpuscular Hemoglobin 31.3 pg (26-34); Mean Corpuscular Volume 99.7 fl (80-100); Mean Platelet Volume 10.2 fl (7.4-10.4); Monocytes Absolute Auto 1.5 K/mm3 (0.1-0.6); Monocytes Percent Auto 12.8 % (2.6-8.5); Neutrophils Absolute Auto 8.6 K/mm3 (1.3-6.7); Platelet Count Result 196 k/mm3 (150-375); Red Blood Count 3.42 M/mm3 (4.2-5.4); White Blood Count 11.8 K/mm3 (4.5-10.0)
[2023-08-05 06:07] LABS: Alanine Aminotransferase 14 U/L (6-35); Albumin Level 2.8 g/dL (3.5-5.1); Alkaline Phosphatase 98 U/L (38-126); Anion Gap 2 mmol/L (4-12); Aspartate Amino Transferase 27 U/L (14-36); Bilirubin,Total 0.2 mg/dL (0.2-1.3); Blood Urea Nitrogen 16 mg/dL (7-17); Calcium 8.3 mg/dL (8.4-10.2); Carbon Dioxide 26 mmol/L (22-30); Chloride 110 mmol/L (98-107); Estimated CRCL calculation 44 ml/min; Estimated Glomerular Filt Rate > 60; Glucose 91 mg/dL (65-110); Magnesium 1.8 mg/dL (1.6-2.3); Potassium 3.7 mmol/L (3.4-5.0); Sodium 138 mmol/L (137-145)
[2023-08-05] MEDS: ASCORBIC ACID 500 MG TABLET PO (08:32)
[2023-08-05] MEDS: PARoxetine 20 MG TABLET 40 MG PO (08:32)
[2023-08-05] MEDS: MULTIVITAMINS THERAPEUTIC TAB (*BKC) 1 TABLET PO (08:32)
[2023-08-05] MEDS: CALCIUM CARBONATE (TUMS) 500 MG (200 MG ELEMENTAL) 600 MG BY MOUTH (08:32)
[2023-08-05] MEDS: CYANOCOBALAMIN 1,000 MCG TABLET 1000 MCG PO (08:32)
[2023-08-05] MEDS: ENOXAPARIN 40 MG/0.4 ML SYRINGE SUB-Q (08:32)
[2023-08-05] MEDS: PANTOPRAZOLE 40 MG TABLET PO (08:33)
[2023-08-05] MEDS: ASPIRIN 81 MG ENTERIC TABLET PO (08:33)
[2023-08-05] MEDS: CHOLECALCIFEROL 400 UNITS TABLET (VIT D) PO (08:33)
--- NOTE | 2023-08-05 14:07 | PM.IMPN ---
Progress Note: A&P Assessment and Plan (1) Urinary tract infection: Code(s): N39.0 - Urinary tract infection, site not specified Status: Acute Assessment and Plan: Urosepsis U/A with positive nitrate, +1 leukocyte esterase, 2+ bacteria telemetry Lactic 1.2 Blood cultures showing E. coli in prelim urine cultures pending Leukocytosis is down trending, WBC 11.8 Rocephin 2 g Repeat blood cultures drawn 08/04 (2) GERD (gastroesophageal reflux disease): Qualifiers: Esophagitis presence: esophagitis presence not specified Qualified Code(s): K21.9 - Gastro-esophageal reflux disease without esophagitis Code(s): K21.9 - Gastro-esophageal reflux disease without esophagitis Status: Chronic Assessment and Plan: Protonix 40 mg PO daily (3) Benign essential hypertension: Code(s): I10 - Essential (primary) hypertension Status: Chronic Assessment and Plan: restart home meds continue to monitor Plan Feeding: Heart healthy diet Analgesia: Tylenol Thromboembolic prophylaxis: Lovenox Ulcer prophylaxis: PPI Glycemic control: Bowel regimen: Lines: Antibiotics: Rocephin 2 g Disposition: When medically stable Subjective Date/time seen: 08/05/23 14:07 Interval history: This is an 87-year-old female with a past medical history of GERD, CVA, hyperlipidemia, hypertension and hypothyroidism. She presented to the ER with complaints of generalized weakness. In the ER she was found to have a leukocytosis of 27,000 with a left shift in UA concerning for UTI. She was admitted for treatment of her UTI. She is seen resting in bed in no acute distress. Overall she looks well. Her only complaint is that she is weak. She does not complain of dysuria but she does note some suprapubic tenderness with position changes. She also reports a headache. This morning her blood pressure is 90/60 and heart rate is in the 130s. Lactic was normal. She says that she lives alone as her recently last month. Her daughter, Luis, lives 5 blocks from her and stays with her overnight. Patient sitting up in her chair, in no distress with no complaints this morning. Denies suprapubic abdominal pain. Repeat BC drawn this am, previous cultures showing E. Coli. Will continue Rocephin until sensitivities report. Review of Systems Review of Systems: All systems reviewed & are unremarkable except as noted in HPI and below Exam Narrative: General: well appearing, well developed, well nourished, appears stated age. HEENT: normocephalic, atraumatic. Mucous membranes moist. EOMI, PERRLA Respiratory: clear to auscultation bilaterally. No rales/rhonic/wheezes. Cardiovascular: RRR, normal S1-S2 upon auscultation. Abdomen: Soft, round, non-distended and non-tender. BS present. Extremities: No cyanosis, clubbing, or edema present. Pulses are palpable 2/2. Active ROM to all four extremities. Neuro: Alert and orientated x 4. Cranial nerves 2-12 intact without focal deficit. Skin: Warm, dry, and intact, without rash, erythema, or lesion. Psych: pleasant, cooperative, normal speech, normal affect, no hallucinations, no dysarthria Objective Data Vital Signs Vital Signs: Vital Signs - 24 hr 08/04/23 15:31 08/04/23 16:00 08/04/23 16:00 Temperature 97.9 F 97.3 F L Pulse Rate 78 75 74 Respiratory Rate 16 16 Blood Pressure 138/60 145/60 H Pulse Oximetry 97 100 Oxygen Delivery 08/04/23 20:37 08/04/23 20:00 08/04/23 20:00 Temperature 98.4 F Pulse Rate 71 73 Respiratory Rate 16 Blood Pressure 137/58 L Pulse Oximetry 99 Oxygen Delivery Room Air 08/05/23 00:00 08/05/23 04:00 08/05/23 05:20 Temperature 98.1 F Pulse Rate 68 66 85 Respiratory Rate 20 Blood Pressure 158/70 H Pulse Oximetry 98 Oxygen Delivery 08/05/23 08:30 08/05/23 08:00 08/05/23 12:00 Temperature Pulse Rate 67 85 Respiratory Rate B
[2023-08-05] MEDS: METOPROLOL SUCCINATE EXT REL 25 MG TABCR PO (16:08)
[2023-08-05] MEDS: cefTRIAXone 2 GM/NS 100 ML 2 GM/100 ML BAG IVPB (20:27)
[2023-08-06] VITALS (8 sets, daily range): BP systolic 150–176; BP diastolic 58–69; PULSE 52–71; RESP 16–20; TEMP 36.1–36.7; O2SAT 93–97
[2023-08-06] MEDS: LEVOTHYROXINE SODIUM 112 MCG TABLET PO (05:52)
[2023-08-06 06:32] LABS: Basophils Percent Auto 0.5 % (0.2-1.2); Eosinophils Absolute Auto 0.2 K/mm3 (0-0.3); Hematocrit 32.6 % (37.0-47.0); Hemoglobin 10.5 g/dL (12.0-15.0); Immature Granulocyte Absolute 0.12 K/mm3 (0.00-0.031); Immature Granulocyte Percent A 1.4 % (0-0.5); Lymphocytes Absolute Auto 1.27 K/mm3 (0.9-3.2); Lymphocytes Percent Auto 14.6 % (18.3-44.2); Mean Corpuscular HGB Conc 32.2 g/dl (32-36); Mean Corpuscular Hemoglobin 31.9 pg (26-34); Mean Corpuscular Volume 99.1 fl (80-100); Mean Platelet Volume 10.2 fl (7.4-10.4); Monocytes Absolute Auto 1.1 K/mm3 (0.1-0.6); Monocytes Percent Auto 12.4 % (2.6-8.5); Neutrophils Percent Auto 69.1 % (45.5-73.1); Platelet Count Result 183 k/mm3 (150-375); Red Blood Count 3.29 M/mm3 (4.2-5.4); White Blood Count 8.7 K/mm3 (4.5-10.0)
[2023-08-06 06:55] LABS: Alanine Aminotransferase 15 U/L (6-35); Albumin Level 2.5 g/dL (3.5-5.1); Alkaline Phosphatase 83 U/L (38-126); Anion Gap 2 mmol/L (4-12); Aspartate Amino Transferase 25 U/L (14-36); Bilirubin,Total 0.2 mg/dL (0.2-1.3); Blood Urea Nitrogen 11 mg/dL (7-17); Carbon Dioxide 24 mmol/L (22-30); Chloride 110 mmol/L (98-107); Estimated CRCL calculation 51 ml/min; Estimated Glomerular Filt Rate > 60; Glucose 89 mg/dL (65-110); Magnesium 1.8 mg/dL (1.6-2.3); Potassium 3.5 mmol/L (3.4-5.0); Sodium 136 mmol/L (137-145)
[2023-08-06] MEDS: CALCIUM CARBONATE (TUMS) 500 MG (200 MG ELEMENTAL) 600 MG BY MOUTH (09:51)
[2023-08-06] MEDS: CYANOCOBALAMIN 1,000 MCG TABLET 1000 MCG PO (09:52)
[2023-08-06] MEDS: ASCORBIC ACID 500 MG TABLET PO (09:52)
[2023-08-06] MEDS: SODIUM CHLORIDE 0.9% IV 1,000 ML 100 ML IV CONT ×4 (09:52→21:09)
[2023-08-06] MEDS: PARoxetine 20 MG TABLET 40 MG PO (09:52)
[2023-08-06] MEDS: METOPROLOL SUCCINATE EXT REL 25 MG TABCR PO (09:52)
[2023-08-06] MEDS: ASPIRIN 81 MG ENTERIC TABLET PO (09:53)
[2023-08-06] MEDS: CANDESARTAN CILEXETIL 16 MG TABLET 32 MG PO (09:53)
[2023-08-06] MEDS: PANTOPRAZOLE 40 MG TABLET PO (09:53)
[2023-08-06] MEDS: CHOLECALCIFEROL 400 UNITS TABLET (VIT D) PO (09:53)
[2023-08-06] MEDS: MULTIVITAMINS THERAPEUTIC TAB (*BKC) 1 TABLET PO (09:53)
[2023-08-06] MEDS: ENOXAPARIN 40 MG/0.4 ML SYRINGE SUB-Q (09:53)
--- NOTE | 2023-08-06 14:05 | PM.IMPN ---
Progress Note: A&P Assessment and Plan (1) Urinary tract infection: Code(s): N39.0 - Urinary tract infection, site not specified Status: Acute Assessment and Plan: Urosepsis U/A with positive nitrate, +1 leukocyte esterase, 2+ bacteria telemetry Lactic 1.2 Blood cultures showing E. coli in prelim urine cultures negative Leukocytosis is down trending, WBC 8.7 Rocephin 2 g Repeat blood cultures drawn 08/04 (2) GERD (gastroesophageal reflux disease): Qualifiers: Esophagitis presence: esophagitis presence not specified Qualified Code(s): K21.9 - Gastro-esophageal reflux disease without esophagitis Code(s): K21.9 - Gastro-esophageal reflux disease without esophagitis Status: Chronic Assessment and Plan: Protonix 40 mg PO daily (3) Benign essential hypertension: Code(s): I10 - Essential (primary) hypertension Status: Chronic Assessment and Plan: restart home meds continue to monitor Plan Feeding: Heart healthy diet Analgesia: Tylenol Thromboembolic prophylaxis: Lovenox Ulcer prophylaxis: PPI Glycemic control: Bowel regimen: Lines: Antibiotics: Rocephin 2 g Disposition: When medically stable Subjective Date/time seen: 08/06/23 14:05 Interval history: This is an 87-year-old female with a past medical history of GERD, CVA, hyperlipidemia, hypertension and hypothyroidism. She presented to the ER with complaints of generalized weakness. In the ER she was found to have a leukocytosis of 27,000 with a left shift in UA concerning for UTI. She was admitted for treatment of her UTI. She is seen resting in bed in no acute distress. Overall she looks well. Her only complaint is that she is weak. She does not complain of dysuria but she does note some suprapubic tenderness with position changes. She also reports a headache. This morning her blood pressure is 90/60 and heart rate is in the 130s. Lactic was normal. She says that she lives alone as her recently last month. Her daughter, Luis, lives 5 blocks from her and stays with her overnight. Patient sitting up in bed, in no distress with no complaints this morning. Denies suprapubic abdominal pain. BC susceptibilities still pending, contacted [facility] and will not have results until tomorrow morning. Will continue Rocephin until sensitivities report. Plan for d/c tomorrow as she is stable. Review of Systems Review of Systems: All systems reviewed & are unremarkable except as noted in HPI and below Exam Narrative: General: well appearing, well developed, well nourished, appears stated age. HEENT: normocephalic, atraumatic. Mucous membranes moist. EOMI, PERRLA Respiratory: clear to auscultation bilaterally. No rales/rhonic/wheezes. Cardiovascular: RRR, normal S1-S2 upon auscultation. Abdomen: Soft, round, non-distended and non-tender. BS present. Extremities: No cyanosis, clubbing, or edema present. Pulses are palpable 2/2. Active ROM to all four extremities. Neuro: Alert and orientated x 4. Cranial nerves 2-12 intact without focal deficit. Skin: Warm, dry, and intact, without rash, erythema, or lesion. Psych: pleasant, cooperative, normal speech, normal affect, no hallucinations, no dysarthria Objective Data Vital Signs Vital Signs: Vital Signs - 24 hr 08/05/23 15:25 08/05/23 16:08 08/05/23 20:00 Temperature 99 F 97.7 F Pulse Rate 73 73 60 Respiratory Rate 22 H 18 Blood Pressure 152/66 H 161/70 H Pulse Oximetry 95 95 Oxygen Delivery 08/05/23 20:00 08/06/23 00:00 08/06/23 04:00 Temperature 98.0 F 97.0 F L Pulse Rate 65 71 Respiratory Rate 18 20 Blood Pressure 160/69 H 151/68 H Pulse Oximetry 97 93 Oxygen Delivery Room Air 08/06/23 08:37 08/06/23 09:52 08/06/23 09:53 Temperature 97.7 F Pulse Rate 60 60 Respiratory Rate 16 Blood Pressure 150/61 H Pulse Oximetry 96 Oxygen Delivery Room Air
--- NOTE | 2023-08-06 14:07 | PCCCNOTE ---
On 08/06/23, the student, Krissy Nj, provided care and completed [facility] documentation on this patient. I have reviewed the student's documentation and agree with the findings.
[2023-08-06] MEDS: ACETAMINOPHEN 325 MG TABLET 650 MG PO (21:03)
[2023-08-06] MEDS: cefTRIAXone 2 GM/NS 100 ML 2 GM/100 ML BAG IVPB (21:07)
[2023-08-07 04:00] VITALS: BP 177/74; PULSE 68; RESP 18; TEMP 36.6; O2SAT 93
[2023-08-07 05:41] LABS: Basophils Absolute Auto 0.1 K/mm3 (0.0-0.1); Basophils Percent Auto 0.6 % (0.2-1.2); Eosinophils Absolute Auto 0.3 K/mm3 (0-0.3); Eosinophils Percent Auto 3.7 % (0-4.4); Hematocrit 34.2 % (37.0-47.0); Hemoglobin 10.9 g/dL (12.0-15.0); Immature Granulocyte Percent A 2.5 % (0-0.5); Lymphocytes Absolute Auto 1.98 K/mm3 (0.9-3.2); Lymphocytes Percent Auto 24.5 % (18.3-44.2); Mean Corpuscular HGB Conc 31.9 g/dl (32-36); Mean Corpuscular Hemoglobin 31.7 pg (26-34); Mean Corpuscular Volume 99.4 fl (80-100); Mean Platelet Volume 10.2 fl (7.4-10.4); Monocytes Absolute Auto 1.1 K/mm3 (0.1-0.6); Monocytes Percent Auto 13.3 % (2.6-8.5); Neutrophils Absolute Auto 4.5 K/mm3 (1.3-6.7); Neutrophils Percent Auto 55.4 % (45.5-73.1); Platelet Count Result 219 k/mm3 (150-375); Red Blood Count 3.44 M/mm3 (4.2-5.4); White Blood Count 8.1 K/mm3 (4.5-10.0)
[2023-08-07 05:47] LABS: Alanine Aminotransferase 23 U/L (6-35); Albumin Level 2.7 g/dL (3.5-5.1); Alkaline Phosphatase 79 U/L (38-126); Anion Gap 1 mmol/L (4-12); Aspartate Amino Transferase 35 U/L (14-36); Bilirubin,Total 0.2 mg/dL (0.2-1.3); Blood Urea Nitrogen 10 mg/dL (7-17); Calcium 8.2 mg/dL (8.4-10.2); Carbon Dioxide 26 mmol/L (22-30); Chloride 111 mmol/L (98-107); Estimated CRCL calculation 51 ml/min; Estimated Glomerular Filt Rate > 60; Glucose 84 mg/dL (65-110); Magnesium 1.9 mg/dL (1.6-2.3); Potassium 3.4 mmol/L (3.4-5.0); Sodium 138 mmol/L (137-145)
[2023-08-07] MEDS: LEVOTHYROXINE SODIUM 112 MCG TABLET PO (06:19)
[2023-08-07] MEDS: SODIUM CHLORIDE 0.9% IV 1,000 ML 100 ML IV CONT (06:21)
[2023-08-07 09:09] VITALS: BP 152/56; PULSE 65; RESP 16; TEMP 36.5; O2SAT 98
[2023-08-07] MEDS: ENOXAPARIN 40 MG/0.4 ML SYRINGE SUB-Q (09:26)
[2023-08-07 09:27] VITALS: PULSE 64
[2023-08-07] MEDS: METOPROLOL SUCCINATE EXT REL 25 MG TABCR PO (09:27)
[2023-08-07] MEDS: ASCORBIC ACID 500 MG TABLET PO (09:27)
[2023-08-07] MEDS: ASPIRIN 81 MG ENTERIC TABLET PO (09:27)
[2023-08-07] MEDS: PARoxetine 20 MG TABLET 40 MG PO (09:28)
[2023-08-07] MEDS: MULTIVITAMINS THERAPEUTIC TAB (*BKC) 1 TABLET PO (09:28)
[2023-08-07] MEDS: CYANOCOBALAMIN 1,000 MCG TABLET 1000 MCG PO (09:29)
[2023-08-07] MEDS: CHOLECALCIFEROL 400 UNITS TABLET (VIT D) PO (09:29)
[2023-08-07] MEDS: PANTOPRAZOLE 40 MG TABLET PO (09:29)
[2023-08-07] MEDS: CANDESARTAN CILEXETIL 16 MG TABLET 32 MG PO (09:29)
[2023-08-07 12:32] VITALS: BP 148/60; PULSE 66; RESP 17; TEMP 36; O2SAT 98
--- NOTE | 2023-08-07 14:19 | PM.DS ---
DS: Admitting Diagnosis Discharge Date 08/07/23 Admitting Diagnosis UTI DS: Discharge Diagnosis Discharge Diagnosis (1) Urinary tract infection: Code(s): N39.0 - Urinary tract infection, site not specified Status: Acute Assessment and Plan: Urosepsis transition to PO Augmentin for d/c. [facility] unable to run specificity report due to sample. repeat BC NGTD discussed with [facility] pharm (2) GERD (gastroesophageal reflux disease): Qualifiers: Esophagitis presence: esophagitis presence not specified Qualified Code(s): K21.9 - Gastro-esophageal reflux disease without esophagitis Code(s): K21.9 - Gastro-esophageal reflux disease without esophagitis Status: Chronic (3) Benign essential hypertension: Code(s): I10 - Essential (primary) hypertension Status: Chronic DS: Summary Hospital Course Hospital Course: Patient 87-year-old female with a past medical history of GERD, CVA, hyperlipidemia, hypertension and hypothyroidism. She presented to the ER with complaints of generalized weakness. In the ER she was found to have a leukocytosis of 27,000 with a left shift in UA concerning for UTI. She was admitted for treatment of her UTI. BC initially obtained showed growth of E.coli, [facility] confirmed sample unable to be ran for susceptibilities. Will treat with Augmentin at d/c, follow up with pending BC. She is stable for d/c home today. VS remained stable, labs improving. Status at Discharge Functional status at discharge: independent ambulation Overall status at discharge: patient is back to baseline Time Spent with Patient Time attestation: Total time spent providing and/or coordinating discharge services: Exam Narrative: General: well appearing, well developed, well nourished, appears stated age. HEENT: normocephalic, atraumatic. Mucous membranes moist. EOMI, PERRLA Respiratory: clear to auscultation bilaterally. No rales/rhonic/wheezes. Cardiovascular: RRR, normal S1-S2 upon auscultation. Abdomen: Soft, round, non-distended and non-tender. BS present. Extremities: No cyanosis, clubbing, or edema present. Pulses are palpable 2/2. Neuro: Alert and orientated x 4. Cranial nerves 2-12 intact without focal deficit. Skin: Warm, dry, and intact, without rash, erythema, or lesion. Psych: pleasant, cooperative, normal speech, normal affect, no hallucinations, no dysarthria DS: Data Data Completed and Pending Labs on day of discharge: Labs from last 24 hours 08/07/23 04:37 WBC 8.1 RBC 3.44 L Hgb 10.9 L Hct 34.2 L MCV 99.4 MCH 31.7 MCHC 31.9 L RDW 12.0 Plt Count 219 MPV 10.2 Immature Gran % (Auto) 2.5 H Neut % (Auto) 55.4 Lymph % (Auto) 24.5 Loving % (Auto) 13.3 H Eos % (Auto) 3.7 Baso % (Auto) 0.6 Lymph # (Auto) 1.98 Loving # (Auto) 1.1 H Eos # (Auto) 0.3 Baso # (Auto) 0.1 Abs Immat Gran (auto) 0.20 H Absolute Neuts (auto) 4.5 Absolute Nucleated RBC 0.000 Nucleated RBC % 0.0 Sodium 138 Potassium 3.4 Chloride 111 H Carbon Dioxide 26 Anion Gap 1 L BUN 10 Creatinine 0.60 L Estim Creat Clear Calc 51 Estimated GFR > 60 Glucose 84 Calcium 8.2 L Magnesium 1.9 Total Bilirubin 0.2 AST 35 ALT 23 Alkaline Phosphatase 79 Total Protein 5.0 L Albumin 2.7 L Preliminary micro results at discharge 08/05/23 05:12 Blood Culture - Preliminary Blood 08/05/23 05:12 Blood Culture - Preliminary Blood 08/02/23 18:53 Blood Culture - Preliminary Blood Escherichia Coli Discharge Plan Discharge Attending physician on discharge: Sonu Pineda Discharging Clinician: Caron Crespo Anticipated Discharge Date/Time: 08/07/23 11:46 Patient Disposition: Home, Self-Care Activity: as tolerated Diet: heart healthy Discharge Instructions: Finish your full course of antibiotics even if you are feeling better. Your next dose will be this evening. Try to take it with some food to prevent stomach u
--- NOTE | 2023-08-11 07:48 | PC.NURSE ---
Blood cx are negative.
== END 2023-08-07 13:00 | disposition home or self-care (01) | DRG 872 ==
LOC: ANHED 21:08 → ANH2MED 22:32
PROVIDERS: Nurse Practitioner Acute Care; Admitting Provider Internal Medicine; Emergency Provider Emergency Medicine; PCP Internal Medicine; Visit Provider Nurse Practitioner
DX: A41.51 Sepsis due to Escherichia coli [E. coli] (principal); N39.0 Urinary tract infection, site not specified; I10 Essential (primary) hypertension; E78.5 Hyperlipidemia, unspecified; E03.9 Hypothyroidism, unspecified; K21.9 Gastro-esophageal reflux disease without esophagitis; K22.2 Esophageal obstruction; M85.80 Other specified disorders of bone density and structure, unspecified site; Z20.822 Contact with and (suspected) exposure to COVID-19; R09.89 Other specified symptoms and signs involving the circulatory and respiratory systems; F32.A Depression, unspecified; Z79.82 Long term (current) use of aspirin; Z86.73 Personal history of transient ischemic attack (TIA), and cerebral infarction without residual deficits
CPT/HCPCS: 36415; 70450; 71046; 72125; 80053; 81001; 83605; 83735; 84484; 85025; 85610; 87040; 87077; 87086; 87088; 87637; 93005; 96361; 96365; 96367; 96375; 99285; A9270; G0378; J0696; J1650; J2185; J2270; J2405; J7030

== ENCOUNTER 2023-08-17 11:57 | Outpatient (CLI) | payer MEDICARE, BC, SELFPAY ==
[2023-08-17 13:17] LABS: Anion Gap 2 mmol/L (4-12); Blood Urea Nitrogen 15 mg/dL (7-17); Calcium 8.8 mg/dL (8.4-10.2); Carbon Dioxide 34 mmol/L (22-30); Chloride 105 mmol/L (98-107); Estimated Glomerular Filt Rate > 60; Glucose 100 mg/dL (65-110); Potassium 3.3 mmol/L (3.4-5.0); Sodium 141 mmol/L (137-145)
[2023-08-17 13:25] LABS: NT Pro B Type Natriuretic Pept 2830 pg/mL (19.9-100)
[2023-08-17 13:38] LABS: D Dimer 2.68 ug/mL (<0.48)
[2023-08-17 14:33] LABS: Prothrombin Time 13.5 Seconds (11.1-14.7)
[2023-08-17 14:45] LABS: Basophils Percent Auto 0.5 % (0.2-1.2); Eosinophils Absolute Auto 0.1 K/mm3 (0-0.3); Eosinophils Percent Auto 1.7 % (0-4.4); Hematocrit 34.6 % (37.0-47.0); Hemoglobin 10.9 g/dL (12.0-15.0); Immature Granulocyte Absolute 0.02 K/mm3 (0.00-0.031); Immature Granulocyte Percent A 0.3 % (0-0.5); Lymphocytes Absolute Auto 1.64 K/mm3 (0.9-3.2); Lymphocytes Percent Auto 21.6 % (18.3-44.2); Mean Corpuscular HGB Conc 31.5 g/dl (32-36); Mean Corpuscular Hemoglobin 31.5 pg (26-34); Mean Platelet Volume 9.6 fl (7.4-10.4); Monocytes Absolute Auto 0.9 K/mm3 (0.1-0.6); Neutrophils Absolute Auto 4.9 K/mm3 (1.3-6.7); Neutrophils Percent Auto 63.9 % (45.5-73.1); Platelet Count Result 388 k/mm3 (150-375); Red Blood Count 3.46 M/mm3 (4.2-5.4); Red Cell Distribution Width 13.2 % (11.5-14.5); White Blood Count 7.6 K/mm3 (4.5-10.0)
== END 2023-08-17 11:58 | disposition home or self-care (01) ==
PROVIDERS: PCP Internal Medicine; Visit Provider Internal Medicine
DX: R06.02 Shortness of breath (principal); R06.2 Wheezing; R06.09 Other forms of dyspnea
CPT/HCPCS: 36415; 80048; 83880; 85025; 85380; 85610; 85730

== ENCOUNTER 2023-08-17 12:01 | Outpatient (CLI) | payer MEDICARE, BC, SELFPAY ==
--- NOTE | ~2023-08-17 | US_ITS ---
EXAMINATION: US venous doppler [facility] DATE: 08/17/2023 14:14 INDICATION: Lower limb swelling. Shortness of breath. TECHNIQUE: Grayscale ultrasound images without and with compression and Doppler ultrasound images of the bilateral lower extremity veins were obtained. COMPARISON: Ultrasound 11/06/2013 FINDINGS: The visualized portions of right common femoral vein, profunda (deep) femoral vein, femoral vein, pop liteal vein, peroneal veins, posterior tibial veins, and greater saphenous vein outflow are patent. The visualized portions of left common femoral vein, profunda femoral vein, femoral vein, popliteal v ein, peroneal veins, posterior tibial veins, and greater saphenous vein outflow are patent. IMPRESSION: 1. No deep venous thrombosis. Reviewed, dictated and finalized at location A.
--- NOTE | ~2023-08-17 | CT_ITS ---
Clinical Indication: Pulmonary embolus CT Scan of the Chest with Contrast: Technique: Contiguous sections were acquired throughout the chest after intravenous administration of 100 cc of Omnipaque 350. Dose reduction technique was used on this scan by utilizing automated expos ure control and iterative reconstruction technique. The dose-length product (DLP) was 241.33 mGy-cm. COMPARISON: 01/01/2023 Findings: There is no evidence of any significant mediastinal, hilar or axillary lymphadenopathy. There is pulm onary embolus involving segmental branches in the left upper lobe. There is no evidence of aortic dis section or aneurysm. No pericardial effusion. Minimal bilateral pleural effusions are noted. The lungs are clear. No pulmonary nodules or infiltrates are noted. Images through the upper abdomen reveal no abnormalities. Impression: Left upper lobe segmental level pulmonary embolus. Minimal bilateral pleural effusions. Reviewed, dictated and finalized at [facility]. Impression: Left upper lobe segmental level pulmonary embolus. Minimal bilateral pleural effusions.
== END 2023-08-17 12:02 | disposition home or self-care (01) ==
PROVIDERS: PCP Internal Medicine; Visit Provider Internal Medicine
DX: R06.02 Shortness of breath (principal); R22.43 Localized swelling, mass and lump, lower limb, bilateral; R06.2 Wheezing
CPT/HCPCS: 36415; 71275; 80048; 83880; 85025; 85380; 85610; 85730; 93970; Q9967

== ENCOUNTER 2023-09-10 08:53 | Outpatient (CLI) | payer MEDICARE, BC, SELFPAY ==
[2023-09-10 09:34] LABS: Anion Gap 7 mmol/L (4-12); Blood Urea Nitrogen 16 mg/dL (7-17); Calcium 9.3 mg/dL (8.4-10.2); Carbon Dioxide 28 mmol/L (22-30); Chloride 106 mmol/L (98-107); Estimated Glomerular Filt Rate 59; Glucose 99 mg/dL (65-110); Potassium 4.1 mmol/L (3.4-5.0); Sodium 141 mmol/L (137-145)
[2023-09-10 09:44] LABS: NT Pro B Type Natriuretic Pept 409 pg/mL (19.9-100)
== END 2023-09-10 08:54 | disposition home or self-care (01) ==
PROVIDERS: PCP Internal Medicine; Visit Provider Internal Medicine
DX: R79.89 Other specified abnormal findings of blood chemistry (principal); I50.89 Other heart failure; I10 Essential (primary) hypertension
CPT/HCPCS: 36415; 80048; 83880

== ENCOUNTER 2023-11-16 11:26 | Outpatient (CLI) | payer MEDICARE, BC, SELFPAY ==
[2023-11-16 11:50] LABS: Basophils Absolute Auto 0.1 K/mm3 (0.0-0.1); Basophils Percent Auto 0.8 % (0.2-1.2); Eosinophils Absolute Auto 0.2 K/mm3 (0-0.3); Eosinophils Percent Auto 2.9 % (0-4.4); Hematocrit 41.1 % (37.0-47.0); Hemoglobin 13.1 g/dL (12.0-15.0); Immature Granulocyte Absolute 0.02 K/mm3 (0.00-0.031); Immature Granulocyte Percent A 0.3 % (0-0.5); Lymphocytes Absolute Auto 1.49 K/mm3 (0.9-3.2); Lymphocytes Percent Auto 23.8 % (18.3-44.2); Mean Corpuscular HGB Conc 31.9 g/dl (32-36); Mean Corpuscular Hemoglobin 31.3 pg (26-34); Mean Corpuscular Volume 98.3 fl (80-100); Mean Platelet Volume 9.7 fl (7.4-10.4); Monocytes Absolute Auto 0.6 K/mm3 (0.1-0.6); Monocytes Percent Auto 8.8 % (2.6-8.5); Neutrophils Percent Auto 63.4 % (45.5-73.1); Platelet Count Result 227 k/mm3 (150-375); Red Blood Count 4.18 M/mm3 (4.2-5.4); Red Cell Distribution Width 12.3 % (11.5-14.5); White Blood Count 6.3 K/mm3 (4.5-10.0)
[2023-11-16 12:00] LABS: Alanine Aminotransferase 17 U/L (6-35); Albumin Level 4.2 g/dL (3.5-5.1); Alkaline Phosphatase 64 U/L (38-126); Anion Gap 8 mmol/L (4-12); Aspartate Amino Transferase 29 U/L (14-36); Bilirubin,Total 0.6 mg/dL (0.2-1.3); Blood Urea Nitrogen 17 mg/dL (7-17); Calcium 9.3 mg/dL (8.4-10.2); Carbon Dioxide 31 mmol/L (22-30); Chloride 101 mmol/L (98-107); Cholesterol 197 mg/dL (0-200); Estimated Glomerular Filt Rate > 60; Glucose 118 mg/dL (65-110); HDL Direct 66 mg/dL; Potassium 3.9 mmol/L (3.4-5.0); Sodium 140 mmol/L (137-145); Triglycerides 145 mg/dL (<150)
[2023-11-16 12:11] LABS: LDL Cholesterol Direct 110 mg/dL
[2023-11-16 12:53] LABS: Free T4 Free Thyroxine 1.16 ng/mL (0.78-2.19)
== END 2023-11-16 11:27 | disposition home or self-care (01) ==
PROVIDERS: PCP Internal Medicine; Visit Provider Internal Medicine
DX: E03.9 Hypothyroidism, unspecified (principal); I10 Essential (primary) hypertension; E78.2 Mixed hyperlipidemia
CPT/HCPCS: 36415; 80053; 80061; 84439; 84443; 85025

== ENCOUNTER 2023-11-25 14:33 | Outpatient (CLI) | payer MEDICARE, BC, SELFPAY ==
--- NOTE | ~2023-11-25 | CT_ITS ---
Clinical Indication: Pulmonary embolus CT Scan of the Chest with Contrast: Technique: Contiguous sections were acquired throughout the chest after intravenous administration of 100 cc of Omnipaque 350. Dose reduction technique was used on this scan by utilizing automated expos ure control and iterative reconstruction technique. The dose-length product (DLP) was 242.39 mGy-cm. COMPARISON: 08/17/2023 Findings: There is no evidence of any significant mediastinal, hilar or axillary lymphadenopathy. There is no f illing defect in the pulmonary arterial tree to suggest pulmonary embolus. There is no evidence of ao rtic dissection or aneurysm. There is no evidence of pleural or pericardial effusion. The lungs are clear. No pulmonary nodules or infiltrates are noted. Images through the upper abdomen reveal no abnormalities. Stable vertebroplasty cement at T11 and T12 . Impression: No evidence of pulmonary embolus, aortic dissection, or aortic aneurysm. Previously noted left upper lobe pulmonary embolus is resolved. Clear lungs. Reviewed, dictated and finalized at [facility]. Impression: No evidence of pulmonary embolus, aortic dissection, or aortic aneurysm. Previo usly noted left upper lobe pulmonary embolus is resolved. Clear lungs.
== END 2023-11-25 14:34 | disposition home or self-care (01) ==
LOC: ANHIMG 14:34
PROVIDERS: PCP Internal Medicine; Visit Provider Internal Medicine
DX: I26.99 Other pulmonary embolism without acute cor pulmonale (principal)
CPT/HCPCS: 71275; Q9967

== ENCOUNTER 2024-03-04 00:35 | Day surgery (SDC) | payer MEDICARE, BC, SELFPAY ==
[2024-02-17 08:56] VITALS: BMI 27.4
[2024-03-04 12:38] VITALS: BP 189/64; PULSE 76; RESP 18; TEMP 36.1; O2SAT 97; BMI 29.2
[2024-03-04] MEDS: LACTATED RINGERS 1,000 ML 150 ML IV CONT (12:46)
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
[2024-03-04 13:30] VITALS: BP 157/60; PULSE 61; RESP 23; O2SAT 100
[2024-03-04 13:40] VITALS: BP 133/58; PULSE 62; RESP 27; O2SAT 97
[2024-03-04 13:50] VITALS: BP 156/59; PULSE 52; RESP 25; O2SAT 100
== END 2024-03-04 14:00 | disposition home or self-care (01) ==
PROVIDERS: PCP Internal Medicine; Visit Provider Internal Medicine Gastroenterology
PROC: 0DJ08ZZ Inspection of Upper Intestinal Tract, Via Natural or Artificial Opening Endoscopic (ICD-10-PCS; CPT 43235; principal; 2024-03-04 14:30)
DX: K21.9 Gastro-esophageal reflux disease without esophagitis (principal); Q39.4 Esophageal web; I10 Essential (primary) hypertension; E78.5 Hyperlipidemia, unspecified; E03.9 Hypothyroidism, unspecified; F32.A Depression, unspecified; L57.0 Actinic keratosis; Z79.82 Long term (current) use of aspirin; Z79.899 Other long term (current) drug therapy; Z86.711 Personal history of pulmonary embolism; Z87.19 Personal history of other diseases of the digestive system; Z86.79 Personal history of other diseases of the circulatory system; Z80.9 Family history of malignant neoplasm, unspecified; Z82.49 Family history of ischemic heart disease and other diseases of the circulatory system
CPT/HCPCS: 43249; 88305; C1726; J2704; J7120

== ENCOUNTER 2024-03-31 14:45 | Outpatient (CLI) | payer MEDICARE, BC, SELFPAY ==
[2024-03-31 15:59] LABS: Alanine Aminotransferase 19 U/L (6-35); Albumin Level 4.2 g/dL (3.5-5.1); Alkaline Phosphatase 80 U/L (38-126); Anion Gap 5 mmol/L (4-12); Aspartate Amino Transferase 28 U/L (14-36); Bilirubin,Total 0.5 mg/dL (0.2-1.3); Blood Urea Nitrogen 24 mg/dL (7-17); Calcium 9.3 mg/dL (8.4-10.2); Carbon Dioxide 28 mmol/L (22-30); Chloride 104 mmol/L (98-107); Cholesterol 157 mg/dL (0-200); Estimated Glomerular Filt Rate > 60; Glucose 101 mg/dL (65-110); HDL Direct 66 mg/dL; Potassium 4.1 mmol/L (3.4-5.0); Sodium 137 mmol/L (137-145); Triglycerides 239 mg/dL (<150)
[2024-03-31 16:09] LABS: LDL Cholesterol Direct 52 mg/dL
[2024-03-31 16:29] LABS: Thyroid Stimulating Hormone 0.604 uIU/mL (0.465-4.680)
== END 2024-03-31 14:46 | disposition home or self-care (01) ==
PROVIDERS: PCP Internal Medicine; Visit Provider Internal Medicine
DX: E03.9 Hypothyroidism, unspecified (principal); I10 Essential (primary) hypertension; E78.2 Mixed hyperlipidemia
CPT/HCPCS: 36415; 80053; 80061; 84439; 84443

== ENCOUNTER 2024-08-01 11:07 | Outpatient (CLI) | payer MEDICARE, BC, SELFPAY ==
[2024-08-01 11:31] LABS: Basophils Percent Auto 0.7 % (0.2-1.2); Eosinophils Absolute Auto 0.2 K/mm3 (0-0.3); Hematocrit 39.1 % (37.0-47.0); Hemoglobin 12.7 g/dL (12.0-15.0); Immature Granulocyte Absolute 0.02 K/mm3 (0.00-0.031); Immature Granulocyte Percent A 0.3 % (0-0.5); Lymphocytes Absolute Auto 1.22 K/mm3 (0.9-3.2); Lymphocytes Percent Auto 20.6 % (18.3-44.2); Mean Corpuscular HGB Conc 32.5 g/dl (32-36); Mean Corpuscular Hemoglobin 32.2 pg (26-34); Mean Corpuscular Volume 99.2 fl (80-100); Mean Platelet Volume 9.6 fl (7.4-10.4); Monocytes Absolute Auto 0.5 K/mm3 (0.1-0.6); Monocytes Percent Auto 8.6 % (2.6-8.5); Neutrophils Percent Auto 66.8 % (45.5-73.1); Platelet Count Result 201 k/mm3 (150-375); Red Blood Count 3.94 M/mm3 (4.2-5.4); Red Cell Distribution Width 11.8 % (11.5-14.5); White Blood Count 5.9 K/mm3 (4.5-10.0)
[2024-08-01 11:42] LABS: Alanine Aminotransferase 20 U/L (6-35); Albumin Level 3.9 g/dL (3.5-5.1); Alkaline Phosphatase 76 U/L (38-126); Anion Gap 6 mmol/L (4-12); Aspartate Amino Transferase 30 U/L (14-36); Bilirubin,Total 1.1 mg/dL (0.2-1.3); Blood Urea Nitrogen 15 mg/dL (7-17); Calcium 9.2 mg/dL (8.4-10.2); Carbon Dioxide 29 mmol/L (22-30); Chloride 103 mmol/L (98-107); Cholesterol 148 mg/dL (0-200); Estimated Glomerular Filt Rate > 60; Glucose 102 mg/dL (65-110); HDL Direct 65 mg/dL; Potassium 4.2 mmol/L (3.4-5.0); Sodium 138 mmol/L (137-145); Triglycerides 118 mg/dL (<150)
[2024-08-01 11:53] LABS: LDL Cholesterol Direct 50 mg/dL
[2024-08-01 12:05] LABS: Free T4 Free Thyroxine 1.39 ng/dL (0.78-2.19)
[2024-08-01 12:12] LABS: Thyroid Stimulating Hormone 0.242 uIU/mL (0.465-4.680)
--- OUTSIDE RECORDS SUMMARY | 2024-08-01 13:12 | XMS_ITS | Referral Summary ---
Author Organization [facility] Address [address] [place] [address] Care Team Providers Care Merchandise Pickup/Receiving Associate Name Role Phone Wesley Rogers MD Primary Care Provider [phone] Allergies No known active allergies Medications aspirin 81 mg chewable tablet Take 1 tablet (81 mg total) by mouth daily 07/06/2018 Active candesartan (ATACAND) 32 mg tablet Take 1 tablet (32 mg total) by mouth daily 09/15/2022 Active Synthroid 137 mcg tablet Take 1 tablet (137 mcg total) by mouth daily 10/15/2022 Active lidocaine (LIDODERM) 5 % Place 1 patch on the skin daily 12 hours per day 10/05/2022 Active metoprolol XL (TOPROL-XL) 25 mg extended release tablet Take 1 tablet (25 mg total) by mouth daily 09/15/2022 Active PARoxetine (PAXIL) 20 mg tablet Take 1 tablet (20 mg total) by mouth daily 08/04/2022 Active traMADoL (ULTRAM) 50 mg tablet Take 1 tablet (50 mg total) by mouth every 6 (six) hours as needed 10/05/2022 Active Active Problems Problem Noted Date Diagnosed Date Thoracic compression fracture, closed, initial e ncounter 10/17/2022 Compression fracture of thor acic vertebra with delayed healing 10/16/2022 Social History Tobacco Use Types Packs/Day Years Used Date Smoking Tobacco: Never Assessed AUDIT-C Answer Date Recorded Q1: How often do you have a drink containing alc ohol? Monthly or less 10/17/2022 Q2: How many drinks containi ng alcohol do you have on a typical day when you are drinking? 1 or 2 10/17/2022 Q3: How often do you have si x or more drinks on one occasion? Never 10/17/2022 Personal Safety Answer Date Recorded Have you ever been in or are you currently in a harmful physical or emotional relationship or is someone making you feel afraid or unsafe? 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 Gender Identity Not on file Sexual Orientation Not on file Last Filed Vital Signs Vital Sign Reading Time Taken Comments Blood Pressure 142/50 10/17/2022 2:21 PM CDT Pulse 53 10/17/2022 2:27 PM CDT Temperature 36.7 C (98 F) 10/17/2022 1:56 PM CDT Respiratory Rate 18 10/17/2022 2:27 PM CDT Oxygen Saturation 100% 10/17/2022 2:27 PM CDT Inhaled Oxygen Concentration - - Weight 69.4 kg (153 lb) 10/17/2022 8:10 AM CDT Height 157.5 cm (5' 2 ) 10/17/2022 8:10 AM CDT Body Mass Index 27.98 10/17/2022 8:10 AM CDT Plan of Treatment Not on file Medical Devices Implanted Type Area Process Eng Device Identifier Shelf Expiration Date Model / Serial / Lot [employer] Vertaplex Hv Autoplex Without Needle Delivery System Kit Bone [id number] - [id number] Implanted:Qty: 1 on 10/17/2022 by Deion Hill MD at [facility] N/A: Spine Lumbar [employer] 06/11/2024 [id number] / / [id number] Description:LOT [id number] Insurance MEDICARE [facility] [employer] MEDICARE [facility] [employer] Care Teams Merchandise Pickup/Receiving Associate Relationship Specialty Start Date End Date Wesley Rogers MD [address] [facility] [address] [facility] [address] [place] [address] PCP - General 05/15/15
--- OUTSIDE RECORDS SUMMARY | 2024-08-01 13:12 | XMS_ITS | Clinical Summary ---
Author Organization [facility] Address [address] [place] [phone] Care Team Providers Care Packer And Carry Out Name Role Phone Wesley Rogers MD Primary Care Provider [phone] Allergies No known active allergies Medications aspirin [...] thor acic vertebra with delayed healing 10/16/2022 Surgical History Surgery Date Site/Laterality Comments HIP FRACTURE SURGERY Bilateral TONSILLECTOMY AND ADENOIDECTOMY CARPAL TUNNEL RELEASE Left Medical History Medical History Date Comments GERD (gastroesophageal reflux disease) Hypothyroidism Stroke (HCC) TIA approx 2018 Esophageal dilatation quite a fe w times, last time approx 2019 Hypertension Social History Tobacco Use Types Packs/Day Years [...] on file 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 Gender Identity Not on file Sexual Orientation Not on file Obstetrics History Last Filed Vital Signs Vital Sign Reading [...] 10/17/2022 8:10 AM CDT Plan of Treatment Health Maintenance Due Date Last Done Comments Depression Screening 1936 Hepatitis B Screening 1954 Well Visit 65+ 2001 Zoster Vaccine (3 of 3) 03/08/2020 01/12/2020, 03/31 Fall Risk Assessment 10/18/2023 10/17/2022 Covid-19 Vaccine ( - 2023-2 5 season) 2024 04/25/2021, 08/02/2020, 07/05/2020 Influenza Vaccine (#1) 2024 , 02/15/2019, 02/02/2018, Additional history exists DTaP/Tdap/Td Vaccine (4 - Td or Tdap) 06/23/2031 06/23/2021, 03/31/2012, 03/01/2012 Pneumococcal vaccine 65+ Completed 020, 01/18/2017, 02/05/2015, Additional history exists Medical Devices Implanted Type Area Secured Entrance Monitor Device Identifier Shelf Expiration Date Model / Serial / Lot [employer] Vertaplex Hv Autoplex Without Needle Delivery System Kit Bone [id number] - [id number] Implanted:Qty: 1 on 10/17/2022 by Deion Hill MD at [facility] N/A: Spine Lumbar [employer] 06/11/2024 [id number] / / [id number] Description:LOT [id number] Insurance MEDICARE [facility] MEDICARE MEDICARE [facility] FEDERAL Care Teams Packer And Carry Out Relationship Specialty Start Date End Date Wesley Rogers MD [address] [place] [address] PCP - General 05/15/15
--- OUTSIDE RECORDS SUMMARY | 2024-08-01 13:13 | XMS_ITS | Clinical Summary ---
Author Organization [facility] Address [address] [place] [address] Care Team Providers Care Community Resource Consultant Name Role Phone Wesley Rogers MD Primary Care Provider [phone] Source Comments [facility],non-owned Affiliates and Associated Physician Practices is amultiple site organization consisting of ambulatory clinics and hospital sitesin [place], [place], [place] and [place]. This disclosure is being madepursuant to the Care Everywhere program and may not contain all information available regarding this patient. Last updated 18.[facility] Allergies No known active allergies Medications * Be aware that medications may not be up to date on this document. Alwaysverify current medications with the patient. Medication Sig Dispensed Refills Start Date End Date Status PARoxetine (PAXIL) 20 MG tablet Take 20 mg by mouth once daily Active famotidine (PEPCID) 40 MG tablet Take 40 mg by mouth once daily Active candesartan (ATACAND) 32 MG tablet Take 32 mg by mouth once daily Active metoprolol succinate XL 24hr (TOPROL XL) 25 MG tablet Take 25 mg by mouth once daily Active niacin CR (NIASPAN) 1000 MG tablet Take 1,000 mg by mouth at bedtime Active atorvastatin (LIPITOR) 10 MG tablet Take 10 mg by mouth at bedtime Active aspirin (ASPIRIN) 81 MG chew tablet Take 1 tablet by mouth once daily 07/06/2018 Active Active Problems Problem Noted Date Diagnosed Date Left-sided weakness 07/03/2018 Received tissue plasminogen activator (tPA) less than 24 hours prior to arrival 07/03/2018 Social History Tobacco Use Types Packs/Day Years Used Date Smoking Tobacco: Never Smokeless Tobacco: Never Alcohol Use Standard Drinks/Week Comments No 0 (1 standard drink = 0.6 oz pur e alcohol) Sex and Gender Information Value Date Recorded Sex Assigned at Not on file Gender Identity Not on file Sexual Orientation Not on file Last Filed Vital Signs Vital Sign Reading Time Taken Comments Blood Pressure 139/60 08/12/2018 1:14 PM CDT Pulse 64 08/12/2018 1:14 PM CDT Temperature 36.4 C (97.6 F) 08/12/2018 1:14 PM CDT Respiratory Rate 16 07/05/2018 12:01 PM MANAGER ENT Oxygen Saturation 95% 07/05/2018 12:01 PM MANAGER ENT Inhaled Oxygen Concentration - - Weight 82.1 kg (181 lb) 08/12/2018 1:14 PM CDT Height 157.5 cm (5' 2 ) 08/12/2018 1:14 PM CDT Body Mass Index 33.11 08/12/2018 1:14 PM CDT Plan of Treatment Health Maintenance Due Date Last Done Comments BONE DENSITY TESTING 1935 MEDICARE AWV 12 MONTHS 1935 DTAP/TDAP/TD VACCINES (1 - Tdap) 12/31/1955 PNEUMOCOCCAL VACCINE 50+ (1 of 1 - PCV) 1986 ZOSTER VACCINE (1 of 2) 1986 Respiratory Syncytial Virus (RSV) Vaccine Pt: or over 60 yrs (1 - 1-dose 75+ series) 12/31/2011 COVID-19 VACCINE ( - 2023- season) 2024 INFLUENZA VACCINE (#1) 2024 8, 01/18/2017, 02/06/2016, Additional history exists DEPRESSION SCREENING 05/11/2024 HEPATITIS B VACCINE Aged Out No longe r eligible based on patient's age to complete this topic HIB VACCINE Aged Out No longer eligi ble based on patient's age to complete this topic HPV VACCINE Aged Out No longer eligi ble based on patient's age to complete this topic MENINGOCOCCAL (Group B) VACCINE SHARED DECISION-MAKING Aged Out No longer eligible based on patient's age to complete this topic MENINGOCOCCAL GROUPS A/C/Y/W VACCINE Aged Out No longer eligible based on patient's age to complete this topic Advance Directives * Full Code (Latest Code Status on File) Date Activated Date Inactivated Comments 07/03/2018 12:00 PM 07/05/2018 5:09 PM Care Teams Community Resource Consultant Relationship Specialty Start Date End Date Wesley Rogers MD [address] [place] [phone] PCP - General 01/08/11
== END 2024-08-01 11:08 | disposition home or self-care (01) ==
PROVIDERS: PCP Internal Medicine; Visit Provider Internal Medicine
DX: E03.9 Hypothyroidism, unspecified (principal); I10 Essential (primary) hypertension; E78.5 Hyperlipidemia, unspecified
CPT/HCPCS: 36415; 80053; 80061; 84439; 84443; 85025

== ENCOUNTER 2024-08-13 17:28 | Emergency (ER) | payer MEDICARE, BC, SELFPAY ==
--- OUTSIDE RECORDS SUMMARY | 2024-08-13 17:30 | XMS_ITS | Referral Summary ---
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 Gender Identity Not on file Sexual Orientation [...] on file Medical Devices Implanted Type Area Campaign Associate Device Identifier Shelf Expiration Date Model / Serial / Lot [employer] [place] [employer] Vertaplex Hv Autoplex Without Needle Delivery System Kit Bone [id number] - [id number] Implanted:Qty: 1 on 10/17/2022 by Deion Hill MD at [facility] N/A: Spine Lumbar [employer] 06/11/2024 [id number] / / [id number] Description:LOT [id number] Insurance MEDICARE [facility] FEDERAL MEDICARE [facility] FED[employer] Care Teams Supervising Architect Relationship Specialty Start Date End Date Wesley Rogers MD [address] [facility] [address] [facility] [address] [place] [address] PCP - General 05/15/15
--- OUTSIDE RECORDS SUMMARY | 2024-08-13 17:30 | XMS_ITS | Clinical Summary ---
Author Organization [facility] Address [address] [place] [address] Care Team Providers Care Experimental Mechanic Spacecraft Name Role Phone Wesley Rogers MD Primary Care Provider [phone] Source Comments [facility],non-owned Affiliates and Associated Physician Practices is amultiple site organization consisting of ambulatory clinics and hospital sitesin [place], [place], [place] and [place]. This disclosure is being madepursuant to the Care Everywhere program and may not contain all information available regarding this patient. Last updated 18.[facility] Allergies No known active allergies Medications * [...] CDT Respiratory Rate 16 07/05/2018 12:01 PM SECURITY OPERATIONS MANAGER Oxygen Saturation 95% 07/05/2018 12:01 PM SECURITY OPERATIONS MANAGER Inhaled Oxygen Concentration - - Weight 82.1 [...] 12:00 PM 07/05/2018 5:09 PM Care Teams Experimental Mechanic Spacecraft Relationship Specialty Start Date End Date Wesley Rogers MD [address] [place] [phone] PCP - General 01/08/11
--- OUTSIDE RECORDS SUMMARY | 2024-08-13 17:30 | XMS_ITS | Clinical Summary ---
Author Organization [facility] Address [address] [place] [phone] Care Team Providers Care Sr. 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 Manager Corporate Communications Relationship Specialty Start Date End Date Wesley Rogers MD [address] [place] [address] PCP - General 05/15/15
[2024-08-13 17:43] VITALS: BP 126/58; PULSE 98; RESP 16; TEMP 37.1; O2SAT 93
--- OUTSIDE RECORDS SUMMARY | 2024-08-13 20:06 | XMS_ITS | Referral Summary ---
Author Organization [facility] Address [address] [place] [phone] Care Team Providers Care Bush Regenerator Name Role Phone Wesley Rogers MD Primary Care Provider [phone] Allergies No known active allergies Medications aspirin [...] on file Legal Sex Female 3:20 AM [employer] DEVELOPER Gender Identity Not on file Sexual [...] on file Medical Devices Implanted Type Area Owner/Photographer Device Identifier Shelf Expiration Date Model / Serial / Lot [employer] Vertaplex Hv Autoplex Without Needle Delivery System Kit Bone [id number] - [id number] Implanted:Qty: 1 on 10/17/2022 by Deion Hill MD at [facility] N/A: Spine Lumbar [employer] 06/11/2024 [id number] / / [id number] Description:LOT [id number] [facility] FEDERAL MEDICARE [facility] FED[employer]AL Care Teams Bush Regenerator Relationship Specialty Start Date End Date Wesley Rogers MD [address] [facility] [address] [facility] [address] [place] [address] PCP - General 05/15/15
--- OUTSIDE RECORDS SUMMARY | 2024-08-13 20:06 | XMS_ITS | Clinical Summary ---
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 Gender Identity Not on file Sexual Orientation [...] history exists Medical Devices Implanted Type Area Imaging Account Manager Device Identifier Shelf Expiration Date Model / Serial / Lot [employer] Vertaplex Hv Autoplex Without Needle Delivery System Kit Bone [id number] - [id number] Implanted:Qty: 1 on 10/17/2022 by Deion Hill MD at [facility] N/A: Spine Lumbar [employer] 06/11/2024 [id number] / / [id number] Description:LOT [id number] [place] [address] [facility] MEDICARE MEDICARE [facility] FEDERAL Care Teams Package Dye Stand Loader Relationship Specialty Start Date End Date Wesley Rogers MD [address] [place] [address] PCP - General 05/15/15
--- OUTSIDE RECORDS SUMMARY | 2024-08-13 20:06 | XMS_ITS | Clinical Summary ---
Author Organization [facility] Address [address] [place] [address] Care Team Providers Care Sanitizer Name Role Phone Wesley Rogers MD Primary Care Provider [phone] Source Comments [facility],non-owned Affiliates and Associated Physician Practices is amultiple site organization consisting of ambulatory clinics and hospital sitesin [place], [place], [place] and [place]. This disclosure is being madepursuant to the Care Everywhere program and may not contain all information available regarding this patient. Last updated 18.[facility] Allergies No known active allergies Medications * [...] CDT Respiratory Rate 16 07/05/2018 12:01 PM NEUROLOGY TEACHER Oxygen Saturation 95% 07/05/2018 12:01 PM NEUROLOGY TEACHER Inhaled Oxygen Concentration - - Weight 82.1 [...] 12:00 PM 07/05/2018 5:09 PM Care Teams Sanitizer Relationship Specialty Start Date End Date Wesley Rogers MD [address] [place] [phone] PCP - General 01/08/11
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
[2024-08-13 20:24] VITALS: BP 115/61; PULSE 72; RESP 20; O2SAT 97
[2024-08-13 20:25] LABS: Basophils Percent Auto 0.5 % (0.2-1.2); Hematocrit 45.7 % (37.0-47.0); Hemoglobin 14.3 g/dL (12.0-15.0); Immature Granulocyte Absolute 0.01 K/mm3 (0.00-0.031); Immature Granulocyte Percent A 0.2 % (0-0.5); Lymphocytes Absolute Auto 0.23 K/mm3 (0.9-3.2); Lymphocytes Percent Auto 3.6 % (18.3-44.2); Mean Corpuscular HGB Conc 31.3 g/dl (32-36); Mean Corpuscular Hemoglobin 31.6 pg (26-34); Mean Corpuscular Volume 100.9 fl (80-100); Monocytes Absolute Auto 0.3 K/mm3 (0.1-0.6); Monocytes Percent Auto 4.5 % (2.6-8.5); Neutrophils Absolute Auto 5.9 K/mm3 (1.3-6.7); Neutrophils Percent Auto 91.2 % (45.5-73.1); Platelet Count Result 214 k/mm3 (150-375); Red Blood Count 4.53 M/mm3 (4.2-5.4); Red Cell Distribution Width 11.9 % (11.5-14.5); White Blood Count 6.5 K/mm3 (4.5-10.0)
[2024-08-13 20:30] VITALS: BP 121/61; PULSE 81; RESP 20; O2SAT 97
[2024-08-13 20:41] LABS: Alanine Aminotransferase 22 U/L (6-35); Alkaline Phosphatase 68 U/L (38-126); Anion Gap 9 mmol/L (4-12); Aspartate Amino Transferase 36 U/L (14-36); Blood Urea Nitrogen 30 mg/dL (7-17); Calcium 8.6 mg/dL (8.4-10.2); Carbon Dioxide 24 mmol/L (22-30); Chloride 103 mmol/L (98-107); Estimated CRCL calculation 44 ml/min; Estimated Glomerular Filt Rate > 60; Glucose 132 mg/dL (65-110); Lipase 80 U/L (23-300); Magnesium 1.7 mg/dL (1.6-2.3); Potassium 4.3 mmol/L (3.4-5.0); Sodium 136 mmol/L (137-145)
[2024-08-13 21:01] LABS: Influenza A QL RT-PCR Negative (Negative); Influenza B QL RT-PCR Negative (Negative); RSV RNA, RT-PCR Negative (Negative); SARS-CoV-2 RNA PCR Negative (Negative)
[2024-08-13] MEDS: ONDANSETRON INJ 4 MG/2 ML VIAL IV PUSH (21:07)
[2024-08-13] MEDS: SODIUM CHLORIDE 0.9% IV 1,000 ML 999 ML IV CONT (21:07)
[2024-08-13 21:50] LABS: Add Urine Microscopic? YES; Appearance Urine Clear (Clear); Bilirubin Urine Negative (Negative); Blood Urine 1+ (Negative); Color Urine Yellow (Yellow); Glucose Urine UA Negative (Negative); Ketones Urine 1+ mg/dL (Negative); Leukocyte Esterase Ur Trace LEU/UL (Negative); Nitrate Urine Negative (Negative); Protein Urine Negative (Negative); Specific Grav Ur 1.027 (1.001-1.035); Urobilinogen Urine 0.2 mg/dL (<2.0); pH Urine 5.5 (5.0-9.0)
[2024-08-13 21:53] LABS: Bacteria Urine None Seen /hpf; Non Pathogenic Casts 0-2; RBC Urine 0-2 /hpf (0-2); Squamous Epithelial Cell Urine None Seen /hpf (Few); WBC Urine 0-5 /hpf (0-3)
[2024-08-13] MEDS: ACETAMINOPHEN 500 MG TABLET 1000 MG PO (22:00)
--- NOTE | 2024-08-13 22:16 | PC.NURSE ---
Pt able to tolerate melvin crackers and water for PO challenge without nausea.
[2024-08-13 22:33] VITALS: PULSE 78; RESP 20; TEMP 36.6; O2SAT 100
== END 2024-08-13 22:34 | disposition home or self-care (01) ==
PROVIDERS: Emergency Provider Student in an Organized Health Care Education/Training Program; PCP Internal Medicine
DX: A08.4 Viral intestinal infection, unspecified (principal); Z20.822 Contact with and (suspected) exposure to COVID-19; I10 Essential (primary) hypertension; E78.5 Hyperlipidemia, unspecified; E03.9 Hypothyroidism, unspecified; M85.80 Other specified disorders of bone density and structure, unspecified site; K21.9 Gastro-esophageal reflux disease without esophagitis; F32.A Depression, unspecified; Z74.09 Other reduced mobility; Z86.73 Personal history of transient ischemic attack (TIA), and cerebral infarction without residual deficits; Z86.711 Personal history of pulmonary embolism; Z79.82 Long term (current) use of aspirin; Z79.899 Other long term (current) drug therapy
CPT/HCPCS: 36415; 80053; 81001; 83690; 83735; 85025; 87637; 96361; 96374; 99284; A9270; J2405; J7030

== ENCOUNTER 2024-10-27 00:53 | Day surgery (SDC) | payer MEDICARE, BC, SELFPAY ==
[2024-10-24 14:39] VITALS: BMI 29.4
--- OUTSIDE RECORDS SUMMARY | 2024-10-27 00:56 | XMS_ITS | Clinical Summary ---
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 Gender Identity Not on file Sexual Orientation [...] 8:10 AM CDT Height 157.5 cm (5' 2) 10/17/2022 8:10 AM CDT Body Mass Index 27.98 10/17/2022 8:10 AM CDT Plan of Treatment Health Maintenance Due Date Last Done Comments Depression Screening 1936 Hepatitis B Screening 1954 Well Visit 65+ 2001 Zoster Vaccine (3 of 3) 03/08/2020 01/12/2020, 03/31 Fall Risk Assessment 10/18/2023 10/17/2022 Covid-19 Vaccine (4 - 2023-2 5 season) 2024 04/25/2021, 08/02/2020, 07/05/2020 Influenza Vaccine (Season Ended) 2025 01/12/2020, 02/15/2019, 02/02/2018, Additional history exists DTaP/Tdap/Td Vaccine (4 - Td or Tdap) 06/23/2031 06/23/2021, 03/31/2012, 03/01/2012 Pneumococcal vaccine 65+ Completed 020, 01/18/2017, 02/05/2015, Additional history exists Medical Devices Implanted Type Area Hedge Fund Manager Device Identifier Shelf Expiration Date Model / Serial / Lot [employer] Vertaplex Hv Autoplex Without Needle Delivery System Kit Bone [id number] - [id number] Implanted:Qty: 1 on 10/17/2022 by Deion Hill MD at [facility] N/A: Spine Lumbar [employer] 06/11/2024 [id number] / / [id number] Description:LOT [id number] Insurance MEDICARE [facility] MEDICARE MEDICARE [facility] Care Teams Supervisor Cigarette Making Department Relationship Specialty Start Date End Date Wesley Rogers MD [address] [place] [address] PCP - General 05/15/15
--- OUTSIDE RECORDS SUMMARY | 2024-10-27 00:56 | XMS_ITS | Referral Summary ---
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 Gender Identity Not on file Sexual Orientation [...] on file Medical Devices Implanted Type Area Architectural Draftsperson Device Identifier Shelf Expiration Date Model / Serial / Lot [employer] Vertaplex Hv Autoplex Without Needle Delivery System Kit Bone [id number] - [id number] Implanted:Qty: 1 on 10/17/2022 by Deion Hill MD at N/A: Spine Lumbar [employer] 06/11/2024 [id number] / / [id number] Description:LOT [id number] Insurance MEDICARE [facility] FEDERAL MEDICARE [facility] FEDERAL Care Teams Stencil Sprayer Relationship Specialty Start Date End Date Wesley Rogers MD [address] [facility] [address] [place] [address] PCP - General 05/15/15
--- OUTSIDE RECORDS SUMMARY | 2024-10-27 00:56 | XMS_ITS | Clinical Summary ---
Author Organization [facility] Address [address] [place] [address] Care Team Providers Care Tapper Operator Name Role Phone Wesley Rogers MD Primary Care Provider [phone] Source Comments [facility],non-owned Affiliates and Associated Physician Practices is amultiple site organization consisting of ambulatory clinics and hospital sitesin [place], [place], [place] and [place]. This disclosure is being madepursuant to the Care Everywhere program and may not contain all information available regarding this patient. Last updated 18.[facility] Allergies No known active allergies Medications * Be aware that medications may not be up to date on this document. Alwaysverify current medications with the patient. 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 Gender Identity Not on file Sexual Orientation Not on file Last Filed Vital Signs Vital Sign Reading Time Taken Comments Blood Pressure 139/60 08/12/2018 1:14 PM CDT Pulse 64 08/12/2018 1:14 PM CDT Temperature 36.4 C (97.6 F) 08/12/2018 1:14 PM CDT Respiratory Rate 16 07/05/2018 12:01 PM MEDIATION COMMISSIONER Oxygen Saturation 95% 07/05/2018 12:01 PM MEDIATION COMMISSIONER Inhaled Oxygen Concentration - - Weight 82.1 kg (181 lb) 08/12/2018 1:14 PM CDT Height 157.5 cm (5' 2) 08/12/2018 1:14 PM CDT Body Mass Index [...] 75+ series) 12/31/2011 COVID-19 VACCINE ( - season) 2024 DEPRESSION SCREENING 05/11/2024 INFLUENZA VACCINE (Season Ended) 2025 02/02/2018, 01/18/2017, 02/06/2016, Additional history exists HEPATITIS B VACCINE Aged Out No longe [...] on patient's age to complete this topic Insurance MEDICARE [facility] SELF PAY NO INSURANCE Member Subscriber Plan / Payer (Ef fective for All Dates) Name:Jonna Velazco Member ID:Not on file Relation to Subscriber:Not on file Name:JONNA VELAZCO Subscriber ID:Not on file (Home) Address: [address] [place] [id number] Payer ID:Not on file Group ID:Not on file Type:Self Pay Address: [place], [place] [address] [facility] Advance Directives * Full Code (Latest Code Status on File) Date Activated Date Inactivated Comments 07/03/2018 12:00 PM 07/05/2018 5:09 PM Care Teams Tapper Operator Relationship Specialty Start Date End Date Wesley Rogers MD [address] [place] [address] PCP - General 01/08/11
[2024-10-27 10:29] VITALS: BP 151/74; PULSE 80; RESP 20; TEMP 36.6; O2SAT 99
[2024-10-27 10:30] VITALS: BMI 29.5
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
[2024-10-27] MEDS: LACTATED RINGERS 1,000 ML 150 ML IV CONT (10:54)
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
[2024-10-27] MEDS: BENZOCAINE (*SP) 60 ML SPRAY CAN (HURRICAINE) 1 SPRAY MUCOUS MEM (11:43)
[2024-10-27 11:56] VITALS: BP 115/51; PULSE 60; RESP 18; O2SAT 96
[2024-10-27 12:06] VITALS: BP 132/69; PULSE 68; RESP 20; O2SAT 97
[2024-10-27 12:16] VITALS: BP 147/60; PULSE 63; RESP 20; O2SAT 98
== END 2024-10-27 12:30 | disposition home or self-care (01) ==
PROVIDERS: PCP Internal Medicine; Visit Provider Internal Medicine Gastroenterology
PROC: 0DJ08ZZ Inspection of Upper Intestinal Tract, Via Natural or Artificial Opening Endoscopic (ICD-10-PCS; CPT 43249; principal; 2024-10-27 15:00)
DX: Q39.4 Esophageal web (principal); K44.9 Diaphragmatic hernia without obstruction or gangrene
CPT/HCPCS: 43249; C1726; J2003; J2704; J7120

== ENCOUNTER 2024-12-19 10:13 | Outpatient (CLI) | payer MEDICARE, BC, SELFPAY ==
--- OUTSIDE RECORDS SUMMARY | 2024-12-19 10:22 | XMS_ITS | Clinical Summary ---
Author Organization [facility] Address [address] [place] [address] Care Team Providers Care Scale Mechanic Name Role Phone Wesley Rogers MD Primary Care Provider [phone] Source Comments [facility],non-owned Affiliates and Associated Physician Practices is amultiple site organization consisting of ambulatory clinics and hospital sitesin [place], [place], [place] and [place]. This disclosure is being madepursuant to the Care Everywhere program and may not contain all information available regarding this patient. 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 Gender Identity Not on file Sexual Orientation Not on file Last Filed Vital Signs Vital Sign Reading Time Taken Comments Blood Pressure 139/60 08/12/2018 1:14 PM CDT Pulse 64 08/12/2018 1:14 PM CDT Temperature 36.4 C (97.6 F) 08/12/2018 1:14 PM CDT Respiratory Rate 16 07/05/2018 12:01 PM COMMISSARY ASSISTANT Oxygen Saturation 95% 07/05/2018 12:01 PM COMMISSARY ASSISTANT Inhaled Oxygen Concentration - - Weight 82.1 [...] COVID-19 VACCINE ( - 2023- season) 2024 DEPRESSION SCREENING 05/11/2024 INFLUENZA VACCINE (#1) 2025 8, 01/18/2017, 02/06/2016, Additional history exists HEPATITIS B [...] age to complete this topic Insurance MEDICARE [facility] SELF PAY NO INSURANCE Member Subscriber Plan / Payer (Ef fective for All Dates) Name:Jonna Velazco Member ID:Not on file Relation to Subscriber:Not on file Name:JONNA VELAZCO Subscriber ID:Not on file (Home) Address: [address] [place] [id number] Payer ID:Not on file Group ID:Not on file Type:Self Pay Address: [place], [place] [address] [facility] Advance Directives * Full Code (Latest Code Status on File) Date Activated Date Inactivated Comments 07/03/2018 12:00 PM 07/05/2018 5:09 PM Care Teams Scale Mechanic Relationship Specialty Start Date End Date Wesley Rogers MD [address] [place] [address] PCP - General 01/08/11
--- OUTSIDE RECORDS SUMMARY | 2024-12-19 10:22 | XMS_ITS | Clinical Summary ---
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 Gender Identity Not on file Sexual Orientation [...] Date Last Done Comments Depression Screening 1936 Osteoporosis Screening-Bone Density Scan 1936 Hepatitis B Screening 1954 Well Visit 65+ 2001 Zoster Vaccine (3 of 3) 03/08/2020 01/12/2020, 03/31 Fall Risk Assessment 10/18/2023 10/17/2022 Covid-19 Vaccine ( - 2023-2 5 season) 2024 04/25/2021, 08/02/2020, 07/05/2020 Influenza Vaccine (#1) 2025 , 02/15/2019, 02/02/2018, Additional history exists DTaP/Tdap/Td Vaccine (4 - Td or Tdap) 06/23/2031 06/23/2021, 03/31/2012, 03/01/2012 Pneumococcal vaccine 65+ Completed 020, 01/18/2017, 02/05/2015, Additional history exists Medical Devices Implanted Type Area Senior Information Security Architect Device Identifier Shelf Expiration Date Model / Serial / Lot [employer] Vertaplex Hv [employer]oplex Without Needle Delivery System Kit Bone [id number] - [id number] Implanted:Qty: 1 on 10/17/2022 by Deion Hill MD at [facility] N/A: Spine Lumbar [employer] 06/11/2024 [id number] / / [id number] Description:LOT [id number] Insurance MEDICARE [facility] MEDICARE MEDICARE [facility] Care Teams Technical Intern Relationship Specialty Start Date End Date Wesley Rogers MD [address] [place] [address] PCP - General 05/15/15
[2024-12-19 11:11] LABS: Anion Gap 4 mmol/L (4-12); Blood Urea Nitrogen 15 mg/dL (7-17); Calcium 9.3 mg/dL (8.4-10.2); Carbon Dioxide 27 mmol/L (22-30); Chloride 104 mmol/L (98-107); Cholesterol 146 mg/dL (0-200); Estimated Glomerular Filt Rate > 60; Glucose 99 mg/dL (65-110); HDL Direct 68 mg/dL; Potassium 4.5 mmol/L (3.4-5.0); Sodium 135 mmol/L (137-145); Triglycerides 78 mg/dL (<150)
[2024-12-19 11:53] LABS: Free T4 Free Thyroxine 1.25 ng/dL (0.78-2.19)
[2024-12-19 11:54] LABS: Thyroid Stimulating Hormone 0.550 uIU/mL (0.465-4.680)
== END 2024-12-19 10:14 | disposition home or self-care (01) ==
LOC: ANHLAB 10:14
PROVIDERS: PCP Internal Medicine; Visit Provider Internal Medicine
DX: E03.9 Hypothyroidism, unspecified (principal); E78.2 Mixed hyperlipidemia; E55.9 Vitamin D deficiency, unspecified; I10 Essential (primary) hypertension
CPT/HCPCS: 36415; 80048; 80061; 82306; 84439; 84443